=== PATIENT | female | born 1970 | race Caucasian/White ===

== ENCOUNTER 2021-09-12 16:03 | Emergency (ER) | payer BC, SELFPAY ==
--- NOTE | 2021-09-12 16:34 | HMH.EDUTC ---
[facility] [place] Clinical Impression: Bronchitis Sinusitis Qualifiers: Sinusitis location: unspecified location Chronicity: acute Recurrence: non-recurrent Qualified Code(s): J01.90 - Acute sinusitis, unspecified Disposition: Home, Self-Care Condition on Discharge: Good Instructions: DI for Sinusitis, DI for Acute Bronchitis Additional Instructions: Drink plenty of fluids. Take tylenol or ibuprofen for pain or fever. Take the medications as directed. Follow up with your regular doctor. GO TO THE ER FOR ANY WORSENING SYMPTOMS The cough medication (promethazine dm) will make you drowsy, so don't drive or operate heavy machinery after taking it. Prescriptions: Promethazine/Dextromethorphan [Promethazine-Dm Syrup] 5 ml PO Q6HP PRN #240 ml PRN Reason: Cough [facility] methylPREDNISolone [Medrol] 4 mg PO DIRECTED 6 Days #21 packet Transmission Status: Received by [facility] Azithromycin [Z-Royal 250mg Tab*] 250 mg PO UD DOSE PK #6 tab Transmission [facility]: [facility] Referrals: Pete Salas APRN [Primary Care Provider] - Forms: Work/School Release Time of Disposition: 16:48 Medical Decision Making - Medical Records Medical records reviewed: No: I reviewed the patient's medical records. - David Inquiry Pt receiving controlled substance: No Vital Signs: 09/12/21 16:40 09/12/21 16:56 Temperature 98.8 F 98.8 F Temperature Source Oral Pulse Rate 88 Pulse Rate [Left Radial] 88 Respiratory Rate 20 20 Blood Pressure 145/85 H Blood Pressure [Right Arm] 162/91 H Blood Pressure Mean [Right Arm] 114 02 Sat by Pulse Oximetry 97 - Lab Data Lab results reviewed: Yes: I reviewed the patient's lab results. Lab Results 09/12/21 16:16: Group A Strep Rapid Negative 09/12/21 16:20: Influenza Type A Ag Negative, Influenza Type B Ag Negative Orders (Tests/Meds): ORDERS Category Date Time Status Full Resp Panel w/COVID ([facility]) Routine Lab 09/12/21 16:48 Received Strep Screen Confirmation Stat Micro 09/12/21 16:16 [place] [facility] [place] - General Stated complaint: cough, runny nose, congestion Time Seen by Provider: 09/12/21 16:34 - History of Present Illness Provider Complaint: She states that she has had a cough and chest congestion for the past 3 days. She has had a low grade fever, chills, and poor appetite also. - Related Data Previous Rx's Medication Instructions Recorded Azithromycin [Z-Royal 250mg Tab*] 250 mg PO UD DOSE PK #6 tab 09/12/21 Promethazine/Dextromethorphan 5 ml PO Q6HP PRN #240 ml 09/12/21 [Promethazine-Dm Syrup] methylPREDNISolone [Medrol] 4 mg PO DIRECTED 6 Days #21 09/12/21 packet Allergies Allergy/AdvReac Type Severity Reaction Status Date / Time Penicillin Allergy Intermediate I-HIVES Uncoded 04/08/17 15:23 STRAWBERRIES (FOOD) Allergy Intermediate I-HIVES, Uncoded 04/08/17 15:23 [facility] History - Hepatitis A Screen Attestation statement:: This patient has been screened for Hepatitis A risk factors. I have reviewed the patient's past medical history: Yes ROS Obtained: Yes All systems reviewed & no additional complaints - Constitutional Constitutional: Reports as per HPI - Eyes Eyes: Denies eye discharge - ENT Ears, Nose, Mouth, and Throat: Reports as per HPI - Cardiovascular Cardiovascular: Denies chest pain - Respiratory Respiratory: Reports chest congestion, Reports cough, Denies dyspnea, Denies stridor, Denies wheezing - Integumentary/Breasts Skin/Breast: Denies rash Physical Exam - General General appearance: alert, in no apparent distress - Head Head exam: atraumatic, normocephalic, normal inspection - Eye Eye exam: Present: normal appearance, PERRL, EOMI - ENT ENT exam: Present: normal exam, normal oropharynx, mucous membranes moist, TM's normal bilaterally, normal external ear exam - Neck N
[2021-09-12 16:37] LABS: UTC Influenza A Antigen Negative (Negative); UTC Influenza B Antigen Negative (Negative)
[2021-09-12 16:40] VITALS: BP 162/91; PULSE 88; RESP 20; TEMP 37.1; O2SAT 97; BMI 36.1
[2021-09-12 16:56] VITALS: BP 145/85; PULSE 88; RESP 20; TEMP 37.1
[2021-09-12 16:56] LABS: Strep Scrn Group A (Rapid) Negative (Negative)
[2021-09-12 21:40] LABS: Coronavirus 19, PCR Not Detected (NotDetected); Influenza A, PCR Not Detected (NotDetected); Influenza B, PCR Not Detected (NotDetected)
== END 2021-09-12 16:57 | disposition home or self-care (01) ==
PROVIDERS: Emergency Provider Nurse Practitioner Family; PCP Registered Nurse
DX: J20.9 Acute bronchitis, unspecified (principal); J01.90 Acute sinusitis, unspecified; Z88.0 Allergy status to penicillin
CPT/HCPCS: 87430; 87804; 99213; C9803; G0463; U0003; U0005

== ENCOUNTER 2021-09-25 18:39 | Emergency (ER) | payer BC, SELFPAY ==
[2021-09-25 19:40] VITALS: BP 156/86; PULSE 91; RESP 19; TEMP 36.9; O2SAT 100; BMI 31.0
--- NOTE | 2021-09-25 20:11 | HMH.EDUTC ---
[facility] [place]position Clinical Impression: Bronchitis Sinusitis Qualifiers: Sinusitis location: unspecified location Chronicity: unspecified Qualified Code(s): J32.9 - Chronic sinusitis, unspecified Disposition: Home, Self-Care Condition on Discharge: Good Instructions: Sinusitis, DI for Sinusitis Additional Instructions: ? Start antibiotic today. Be sure to complete entire prescription even if feeling better ? Monitor temp. Tylenol every 4 hours as needed and / or ibuprofen every 6 hours as needed ( As long as your primary care physician has told you that it ok to take both. For fever/aches/pains ER if no less than 101 despite Tylenol or Motrin ? Humidifier/vaporizer or hot steamy shower ? Inhaler every 4-6 hours as needed like we discussed. If unsure how to use it, ask pharmacist to demonstrate how. Should help open airways and improve cough, wheezing, and shortness of breath ? Mucinex during the day for your cough and cough suppressant only at night. Be sure to drink lots of water. Insurance may not cover a prescriptions for mucinex. Might be cheaper to get 400mg tablets and take 2 tablet in the morning, mid-day and evening with lots of water. *Start steroid today. Helps with inflammation therefore, cough and wheezing. Follow directions on the package. Reviewed side effects. Patient reports taking them before. Follow up IMMEDIATELY for new or worsening of symptoms OR no noticeable improvement over the next 48-72 hours. 911 immediately for any life threatening symptoms such as chest pain or difficulty breathing Prescriptions: Albuterol Sulfate [Proventil-HFA 90mcg/puff Inh] 1 - 2 puffs IH Q6HP PRN #1 each PRN Reason: Shortness Of Breath [facility] guaiFENesin [Mucinex 600mg tablet] 1 - 2 tab PO Q12HP PRN #20 tab PRN Reason: Congestion Transmission Status[facility] Doxycycline Monohydrate [Doxycycline Foster 100mg Tab] 100 mg PO BID 10 Days #20 tab Transmission [facility]: [facility] predniSONE [Prednisone 20mg Tab] 20 mg PO BID 3 Days #6 tab Transmission Status[facility] Referrals: Provider,Referral, [Primary Care Provider] - As needed Time of Disposition: 20:24 Medical Decision Making - David Inquiry Pt receiving controlled substance: No David was queried for this patient: No Vital Signs: 09/25/21 19:40 Temperature 98.5 F Temperature Source Oral Pulse Rate [Right Brachial] 91 H Respiratory Rate 19 Blood Pressure [Right Arm] 156/86 H Blood Pressure Mean [Right Arm] 109 Blood Pressure Source [Right Arm] Automatic Cuff Blood Pressure Position [Right Arm] Sitting 02 Sat by Pulse Oximetry 100 Oxygen Delivery Method Room Air [facility] [place] HPI - General Stated complaint: cough,SOB,Congestion Time Seen by Provider: 09/25/21 20:11 Mode of Arrival: Ambulatory Source of Information: Patient Limitations: No Limitations Description of Symptoms (Recalled from Triage Doc. by RN): PATIENT C/O COUGH, CONGESTION, SOA X 2 WEEKS. WAS RECENTLY TREATED FOR SINUS INFECTION BUT STATES SHE HAS GOTTEN WORSE HEENT Symptoms (Recalled from RN notes): Yes Resp Symptoms (Recalled from RN notes): Yes Skin Symptoms (Recalled from RN notes): No MS Symptoms (Recalled from RN notes): No Functional Status (Recalled from RN notes): WNL - History of Present Illness Provider Complaint: Patient states that she was recently seen and treated for sinus infection State that she took a zpack but it didnt help much States that she thinks she needs something stronger to help clear it up States that she is still having sinus pain and pressure and cough - Related Data Home Medications Medication Instructions Recorded Confirmed lisinopriL [Lisinopril] 40 mg PO DAILY 09/25/21 09/25/21 Previous Rx's Medication Instructions Recorded Albuterol Sulfate [Proventil-HFA 1 - 2 puffs IH Q6HP PRN #1 each 09/25/21 90mcg/puff Inh
[2021-09-25 20:25] VITALS: BP 156/86; PULSE 91; RESP 19; TEMP 36.9; O2SAT 100
== END 2021-09-25 20:30 | disposition home or self-care (01) ==
PROVIDERS: Emergency Provider Nurse Practitioner
DX: J40 Bronchitis, not specified as acute or chronic (principal); J32.9 Chronic sinusitis, unspecified; Z88.0 Allergy status to penicillin
CPT/HCPCS: 99212; G0463

== ENCOUNTER → 2022-05-22 15:11 | Outpatient (CLI) | payer BC, SELFPAY | PROVIDERS: PCP Family Medicine; Visit Provider Family Medicine | DX: G47.30 Sleep apnea, unspecified (principal); R53.83 Other fatigue; R06.83 Snoring; I10 Essential (primary) hypertension; E66.9 Obesity, unspecified | CPT/HCPCS: G0399 ==

== ENCOUNTER → 2022-11-22 10:54 | Outpatient (CLI) | payer BC, SELFPAY ==
--- NOTE | 2022-11-22 10:59 | MM_ITS ---
PROCEDURE INFORMATION: Exam: Bilateral Screening 3D Mammography Exam date and time: 11/22/2022 11:04 AM Age: 52 years old Clinical indication: Screening mammogram. Family history of breast cancer in sister and in grandmother; Sister's age: 57 years TECHNIQUE: Imaging protocol: Bilateral Screening tomosynthesis and 2D mammography including computer-aided detection (CAD) when performed. COMPARISON: No relevant prior studies available. FINDINGS: MAMMOGRAPHY: Breast composition: The breast is heterogeneously dense, which may obscure small masses. Mass: None. Architectural distortion: No new or suspicious architectural distortion. Calcifications: Calcifications within the upper outer right middle 1/3 should be assessed with spot MAGNIFICATION views in CC/ML projection for morphologic characterization. . Asymmetric density: 1.1 cm asymmetric density within the upper outer posterior right breast should be further assessed with spot views in CC/MLO projection. Ultrasound should also be performed. Skin thickening: None. Axillary adenopathy: None. IMPRESSION: 1.1 cm asymmetric density within the upper outer posterior right breast should be further assessed with spot views in CC/MLO projection. Ultrasound should also be performed. Calcifications within the upper outer right middle 1/3 should be assessed with spot MAGNIFICATION views in CC/ML projection for morphologic characterization ASSESSMENT: BI-RADS category 0: Incomplete-need additional imaging evaluation and/or prior mammograms for comparison.
== END ==
PROVIDERS: PCP Family Medicine; Visit Provider Family Medicine
DX: Z12.31 Encounter for screening mammogram for malignant neoplasm of breast (principal)
CPT/HCPCS: 77063; 77067

== ENCOUNTER → 2022-12-06 10:38 | Outpatient (CLI) | payer BC, SELFPAY ==
--- NOTE | 2022-12-06 10:44 | XR_ITS ---
FINAL REPORT CLINICAL HISTORY: medial sided Lt knee pain. FINDINGS: Left knee Four views were obtained. There is no acute fracture or dislocation. There are mild degenerative changes. No soft tissue abnormality is identified. IMPRESSION: No acute process. Reviewed, Interpreted and Dictated by Dean Pack III, MD Transcribed by Nathalia Murillo Authenticated and [facility]
--- NOTE | 2022-12-06 14:30 | MM_ITS ---
PROCEDURE INFORMATION: Exam: US Right Breast, Complete MG Right Diagnostic Breast Tomosynthesis Exam date and time: 12/06/2022 2:24 PM Age: 52 years old Clinical indication: Patient recalled on the basis of a screening mammogram for further evaluation; Right breast; calcifications and asymmetry TECHNIQUE: Imaging protocol: Complete ultrasound of all four quadrants of the right breast and the retroareolar regions, including ultrasound of the axilla when performed. Right Diagnostic tomosynthesis and 2D mammography including computer-aided detection (CAD) when performed. Unilateral or bilateral exam. COMPARISON: MG MM DIG SCREENING MAMM BI W/CAD 11/22/2022 11:04 AM FINDINGS: MAMMOGRAPHY: Digital diagnostic magnification views of the middle third of the right upper outer quadrant demonstrate predominantly layering calcifications most compatible with benign milk of calcium. There are few remaining ovoid calcifications however these have a benign radiographic appearance. Digital diagnostic spot compression views of the posterior right upper outer breast demonstrates persistent asymmetry admixed with benign fatty tissue elements. This suggests a benign island of fibroglandular structures. ULTRASOUND: Sonographic images of the right breast including the retroareolar region, all 4 quadrants and the axilla do not demonstrate any solid or cystic masses. No architectural distortion or acoustical shadowing. No skin thickening or axillary adenopathy. IMPRESSION: 1. Calcifications in the right upper outer quadrant are, in all likelihood, benign in etiology. A precautionary six-month follow-up diagnostic right mammogram magnification views are recommended to ensure stability over time. 2. No suspicious persistent asymmetry in the right breast. ASSESSMENT: BI-RADS Category 3: Probably benign
== END ==
PROVIDERS: PCP Family Medicine; Visit Provider Family Medicine
DX: M25.562 Pain in left knee (principal); R92.8 Other abnormal and inconclusive findings on diagnostic imaging of breast
CPT/HCPCS: 73562; 76641; 77061; 77065; G0279

== ENCOUNTER 2023-02-14 06:46 | Day surgery (SDC) | payer BC, SELFPAY ==
[2023-02-14 06:54] VITALS: BMI 30.9
[2023-02-14 07:08] VITALS: BP 167/83; PULSE 76; RESP 18; TEMP 36.3; O2SAT 100
[2023-02-14 07:39] LABS: Urine Pregnancy, HCG Qual. Negative (Negative)
[2023-02-14 07:41] VITALS: O2SAT 100
--- NOTE | 2023-02-14 07:42 | P.PNANES_ITS ---
[facility] Disclaimer: The information contained in this section may have been updated after the patient was seen, as this information can be updated by other users. Medical History Bipolar 1 disorder Hypertension Osteoarthritis Surgical History History of appendectomy History of bilateral breast reduction surgery History of delivery History of cholecystectomy History of left knee surgery History of right shoulder replacement History of tubal ligation Family History Other Cancer Coronary artery disease Diabetes Heart attack Hypertension Kidney disease Social History Smoking Status: Never smoker alcohol intake: never substance use type: denies use current occupational status: employed Travel in the last 8 weeks: None housing: house marital status: [facility] Anesthesia Checklist Patient Identification Patient Identification: Arm Band Structural Data Admitted From: Home Planned Operative Procedure/s: colonoscopy Consent for Planned Operative Procedure(s) Verified: Yes Verified Documents: Surgical Consent and History and Physical NPO Status Verified Time NPO: 00:00 Additional verifications Anesthesia Reactions: No Airway Assessment Mallampati Score:: Class II C-Spine Mobility Assessed: Yes TMJ Mobility Assessed: Yes Dentition: Good Dentition Neurological Assessment Level of Consciousness: Awake and Alert Anesthesia Plan Anesthesia Risk discussed: Yes Anesthesia Plan: Verified ASA Class: II Anesthesia Type: MAC
[2023-02-14 08:15] VITALS: BP 129/74; PULSE 75; RESP 17; TEMP 36.2; O2SAT 98
--- NOTE | 2023-02-14 08:15 | HMH.SCOPE ---
Procedure: Date: 02/14/23 Patient Date of :: 1970 Procedure Performed:: Total colonoscopy to ileocecal valve Indications:: Patient is a 53-year-old female referred by Dr. Rodriguez for screening colonoscopy. She has had previous colonoscopy on more than one occasion and had previous polyps reportedly. Last colonoscopy was about 11 years ago. Performing Provider:: Dean Zhao MD Referring Provider:: Alonso Rodriguez Sedation:: MAC sedation Procedure:: Patient history was obtained and appropriate physical examination was performed. Patient's medications and allergies were reviewed. Informed consent was obtained after explaining the benefits, alternatives, and risks of the procedure including, but not limited to, bleeding, perforation, missed lesions, and adverse reaction to anesthesia medications. Patient was transported to endoscopy procedure room. Patient was connected to monitoring devices. Throughout the procedure the patient's blood pressure, pulse, and oxygen saturations were monitored continuously. Patient identification and planned procedure were verified by the staff. Patient was positioned in lateral decubitus position. Digital anorectal exam was performed. Variable stiffness Olympus colonoscope was inserted and advanced under direct visualization to the cecum. Adequacy of the colonic preparation was noted. The colonoscope was advanced a short distance into the ileocecal valve. The colonoscope was then slowly withdrawn while carefully examining the color, texture, anatomy, and integrity of the mucosoa circumferentially. Within the rectum retroflexion was performed. Colonoscope was then withdrawn. Findings:: A few sigmoid diverticuli Specimens:: None Recommendations:: Repeat colonoscopy 5 to 7 years given prior history of polyps reportedly Complications:: None immediately apparent Estimated blood obtained (mL): 1 Colonoscopy Component Colonoscopy Component Was a colonoscopy performed during today's procedure?: Yes Recommended follow up colonoscopy of at least 10 years?: No If no, follow up colonoscopy recommended in ___ years?: 7 Reason for not recommending >/= 10 yr follow-up interval?: Previous polyps
[2023-02-14 08:25] VITALS: BP 125/75; PULSE 69; RESP 16; O2SAT 98
[2023-02-14 08:35] VITALS: BP 135/76; PULSE 77; RESP 17; O2SAT 97
[2023-02-14 08:45] VITALS: BP 152/92; PULSE 76; RESP 17; O2SAT 97
== END 2023-02-14 08:55 | disposition home or self-care (01) ==
PROVIDERS: PCP Family Medicine; Visit Provider Surgery
PROC: 0DJD8ZZ Inspection of Lower Intestinal Tract, Via Natural or Artificial Opening Endoscopic (ICD-10-PCS; CPT 45378; principal; 2023-02-14 07:30)
DX: Z12.11 Encounter for screening for malignant neoplasm of colon (principal); Z86.010 Personal history of colon polyps; K57.30 Diverticulosis of large intestine without perforation or abscess without bleeding
CPT/HCPCS: 45378; 81025

== ENCOUNTER 2023-04-23 12:34 | Emergency (ER) | payer BC, SELFPAY ==
[2023-04-23 13:00] VITALS: BP 150/96; PULSE 78; RESP 18; TEMP 37; O2SAT 96; BMI 31.8
[2023-04-23 13:24] LABS: Apearance,Urine Clear (Clear); Color,Urine Amber (Yellow); Glucose,Urine (UA) Negative (Negative); Ketones,Urine Negative (Negative); Protein,Urine 1+ (Negative); Specific Gravity, Urine 1.025 (1.005-1.030)
[2023-04-23 13:25] LABS: Bilirubin,Urine Negative (Negative); Blood, Urine Negative (Negative); UTC Leukocyte Esterase,Urine Negative (Negative); UTC Nitrate,Urine Negative (Negative); Urobilinogen,Urine 0.2 EU/dl (0.2)
--- NOTE | 2023-04-23 14:00 | ED_ITS ---
Discharge Plan Disposition Patient Disposition: Home, Self-Care Condition: Good Prescriptions Prescriptions: New cephalexin [cephalexin] 500 mg tablet 500 mg PO BID 7 Days Qty: 14 0RF No Action amlodipine 10 mg tablet 10 mg PO DAILY ergocalciferol (vitamin D2) 1,250 mcg (50,000 unit) capsule 50,000 unit PO WEEKLY Wegovy 2.4 mg/0.75 mL pen injector 2.4 mg SQ WEEKLY lisinopril 40 MG tablet 40 mg PO DAILY nitrofurantoin monohyd/m-cryst 100 mg capsule See Rx Instructions .ROUTE .COMPLEX Patient Comments: TAKE 1 CAPSULE BY MOUTH TWICE DAILY Rx Instructions: TAKE 1 CAPSULE BY MOUTH TWICE DAILY Referrals Follow up/Referrals: Alonso Rodriguez MD [Primary Care Provider] - See instructions Activity Restrictions/Add. Instructions Additional Instructions/Restrictions: Increase fluids, water and not soda or tea. Can drink cranberry juice or cranberry extract. Wipe front to back Wear cotton underwear Empty bladder after intercourse Start antibiotics immediately and make sure you take the full course although you may start to see improvement over the next 48 hours. You can eat yogurt or take probiotics to decrease diarrhea or yeast infection caused by the antibiotic Be sure to follow-up anytime for new or worsening symptoms in 48 hours for wound urine culture results be sure to let you PCP no recent urine for culture so they can request records and ensure that you have appropriate antibiotic if you are not getting better or getting worse. If symptoms worsen or do not improve return or be seen in the ER. Follow-up with primary care this week. Clinical Impressions Clinical Impression: UTI (urinary tract infection) Qualifiers: Urinary tract infection type: acute cystitis Hematuria presence: without hematuria Qualified Code(s): N30.00 - Acute cystitis without hematuria Instructions Patient Instructions: Urinary Tract Infection Discharge ED Provider: Alex ([facility])[place] [facility] [place] HPI General Stated complaint: pain in urination & lower back Mode of Arrival: Ambulatory Source of Information: Patient Limitations: No Limitations Time Seen by Provider: 04/23/23 14:00 Description of Symptoms (Recalled from Triage Doc. by RN): Pt is currently on macrobid for a UTI. She stated that the symptoms has returned yesterday with lower back pain, nausea, and burning with urination. HEENT Symptoms (Recalled from RN notes): Yes Resp Symptoms (Recalled from RN notes): No Skin Symptoms (Recalled from RN notes): No MS Symptoms (Recalled from RN notes): No Functional Status (Recalled from RN notes): n/a History of Present Illness Provider Complaint: 53 yr old female presents for burning with urination, low back pain and bladder pain. Pt is currently on macrobid for a UTI. She stated that the symptoms has returned yesterday with lower back pain, nausea, and burning with urination. Related Data Home Medications Medication Instructions Recorded Confirmed lisinopril 40 mg tablet 40 mg PO DAILY Hypertension 09/25/21 04/23/23 amlodipine 10 mg tablet 10 mg PO DAILY 06/20/22 04/23/23 ergocalciferol (vitamin D2) 1,250 50,000 unit PO WEEKLY 06/20/22 04/23/23 mcg (50,000 unit) capsule semaglutide (weight loss) 2.4 2.4 mg SQ WEEKLY 12/06/22 04/23/23 mg/0.75 mL subcutaneous pen injector (Wegovy) nitrofurantoin See Rx Instructions .Route .COMPLEX 04/23/23 04/23/23 monohydrate/macrocrystals 100 mg capsule Previous Rx's Medication Instructions Recorded cephalexin 500 mg tablet 500 mg PO BID 7 days #14 tabs 04/23/23 Allergies Allergy/AdvReac Type Severity Reaction Status Date / Time Penicillins Allergy Verified 04/23/23 13:22 strawberry Allergy Verified 04/23/23 13:22 Worker's Comp Is this a Worker's Comp case?: No [facility] Disclaimer: The information contained in this section may have been updated after the patient was seen, as this information can be updated by other users. Medical History , [employer]) Bipolar 1 disorder Hypertension Osteoarthritis Surgical History , [employer]) History of appendectomy History of bilateral breast reduction surgery History of delivery History of cholecystectomy History of left knee surgery History of right shoulder replacement History of tubal ligation Family History , [employer]) Diabetes Coronary artery disease Kidney disease Heart attack Cancer Hypertension Social History , [employer]) Smoking Status: Never smoker alcohol intake: never substance use type: denies use current occupational status: employed Travel in the last 8 weeks: None housing: house marital status: ROS Obtained: Yes All systems reviewed & no additional complaints except as documented Constitutional Constitutional: Reports system reviewed and no additional complaints, except as documented Eyes Eyes: Reports system reviewed and no additional complaints, except as documented ENT Ears, Nose, Mouth, and Throat: Reports system reviewed and no additional complaints, except as documented Cardiovascular Cardiovascular: Reports system reviewed and no additional complaints, except as documented Respiratory Respiratory: Reports system reviewed and no additional complaints, except as documented Gastrointestinal Gastrointestingal: Reports system reviewed and no additional complaints, except as documented Genitourinary Female Genitourinary: Reports system reviewed and no additional complaints, except as documented, Reports as per HPI, Reports pelvic pain, Reports urinary frequency and Reports urinary urgency Musculoskeletal Musculoskeletal: Reports system reviewed and no additional complaints, except as documented Integumentary/Breasts Skin/Breast: Reports system reviewed and no additional complaints, except as documented Neurologic Neurologic: Reports system reviewed and no additional complaints, except as documented Endocrine Endocrine: Reports system reviewed and no additional complaints, except as documented Hematologic/Lymphatic Henatologic/Lymphatic: Reports system reviewed and no additional complaints, except as documented Allergic/Immunologic Allergic/Immunologic: Reports system reviewed and no additional complaints, except as documented Physical Exam General General appearance: alert and in no apparent distress Head Head exam: atraumatic Eye Eye exam: Present normal appearance and PERRL ENT ENT exam: Present normal exam, normal oropharynx, mucous membranes moist and TM's normal bilaterally Respiratory Respiratory exam: Present normal lung sounds bilaterally Cardiovascular Cardiovascular exam: Present regular rate and normal rhythm Back Exam Back exam: Present CVA tenderness (R) Neurological Exam Neurological exam: Present alert and oriented X3 Medical Decision Making Medical Records Medical records reviewed: Yes I reviewed the patient's medical records. David Inquiry Pt receiving controlled substance: No David was queried for this patient: No Vital Signs: 04/23/23 13:00 Temperature 98.6 F Temperature Source Oral Pulse Rate [Right Radial] 78 Respiratory Rate 18 Blood Pressure [Right Arm] 150/96 H Blood Pressure Mean [Right Arm] 114 Blood Pressure Source [Right Arm] Automatic Cuff Blood Pressure Position [Right Arm] Sitting 02 Sat by Pulse Oximetry 96 Oxygen Delivery Method Room Air Lab Data Lab results reviewed: Yes I reviewed the patient's lab results. Lab Results 04/23/23 13:09: Urine Color Eduarda, Urine Appearance Clear, Urine pH 6.0, Ur Specific [place] 1.025, Urine Protein 1+, Urine Glucose (UA) Negative, Urine Ketones Negative, Urine Blood Negative, Urine Nitrate Negative, Urine Bilirubin Negative, Urine Urobilinogen 0.2, Ur Leukocyte Esterase Negative Orders (Tests/Meds): ORDERS Category Date Time Status Urine Culture Stat Micro 04/23/23 13:05 Received
[2023-04-23 14:19] VITALS: BP 150/96; PULSE 78; RESP 18; TEMP 37; O2SAT 96
== END 2023-04-23 14:19 | disposition home or self-care (01) ==
PROVIDERS: Emergency Provider Nurse Practitioner Family; PCP Family Medicine
DX: N30.00 Acute cystitis without hematuria (principal); B96.89 Other specified bacterial agents as the cause of diseases classified elsewhere; M54.59 Other low back pain; R10.2 Pelvic and perineal pain; R11.0 Nausea; I10 Essential (primary) hypertension
CPT/HCPCS: 81003; 87086; 99212; 99214; G0463

== ENCOUNTER 2023-08-06 13:22 | Outpatient (CLI) | payer BC, SELFPAY ==
--- NOTE | 2023-08-06 13:29 | MM_ITS ---
PROCEDURE INFORMATION: Exam: MG Right Diagnostic Breast Tomosynthesis Exam date and time: 08/06/2023 1:39 PM Age: 53 years old Clinical indication: Short-term radiographic followup; right breast calcifications TECHNIQUE: Imaging protocol: Right Diagnostic tomosynthesis and 2D mammography including computer-aided detection (CAD) when performed. Unilateral or bilateral exam. COMPARISON: 1. MG MM DIG MAMM DX UNILAT RT CAD 12/06/2022 2:24 PM 2. MG MM DIG SCREENING MAMM BI W/CAD 11/22/2022 11:04 AM FINDINGS: MAMMOGRAPHY: Breast composition: There are scattered areas of fibroglandular density. Breast mammogram findings: There is no stellate mass or architectural distortion to suggest malignancy. Magnification views of the right upper outer quadrant demonstrate stable fairly widespread geographically distributed predominantly round calcifications. No tight clustering or significant pleomorphism. No skin thickening or axillary adenopathy. IMPRESSION: Stable probably benign calcifications in the right upper outer quadrant compared to prior mammogram dated 12/06/2022. A six-month follow-up diagnostic bilateral mammogram with magnification views of the right breast are recommended for continued close surveillance of the right sided calcifications as well as part of an annual screening schedule ASSESSMENT: BI-RADS Category 3: Probably benign.
== END 2023-08-06 23:59 | disposition home or self-care (01) ==
LOC: RAD 13:23
PROVIDERS: PCP Family Medicine; Visit Provider Family Medicine
DX: R92.8 Other abnormal and inconclusive findings on diagnostic imaging of breast (principal)
CPT/HCPCS: 77061; 77065; G0279

== ENCOUNTER 2024-05-19 13:22 | Emergency (ER) | payer BC, SELFPAY ==
[2024-05-19 13:40] VITALS: BP 156/92; PULSE 97; RESP 18; TEMP 36.8; O2SAT 96; BMI 33.3
[2024-05-19 13:43] LABS: Apearance,Urine Cloudy (Clear); Color,Urine Yellow (Yellow); PH,Urine 5.5 (5.0-8.5); Protein,Urine 1+ (Negative)
[2024-05-19 13:44] LABS: Bilirubin,Urine Negative (Negative); Blood, Urine Trace (Negative); Glucose,Urine (UA) Negative (Negative); Ketones,Urine Negative (Negative); UTC Leukocyte Esterase,Urine 2+ (Negative); UTC Nitrate,Urine Positive (Negative); Urobilinogen,Urine 0.2 EU/dl (0.2)
--- NOTE | 2024-05-19 13:52 | ED_ITS ---
Discharge Plan Disposition Patient Disposition: Home, Self-Care Condition: Good Prescriptions Prescriptions: New phenazopyridine [Pyridium] 200 mg tablet 200 mg PO Q8H 2 Days Qty: 6 0RF ondansetron 4 mg Tablet,Disintegrating 4 mg PO Q8H PRN (Reason: Nausea) Qty: 12 0RF nitrofurantoin monohyd/m-cryst [Macrobid] 100 mg Capsule 100 mg PO BID Qty: 10 0RF Rx Instructions: must administer with a meal/food No Action amlodipine 10 mg tablet 10 mg PO DAILY ergocalciferol (vitamin D2) 1,250 mcg (50,000 unit) capsule 50,000 unit PO WEEKLY Wegovy 2.4 mg/0.75 mL pen injector 2.4 mg SQ WEEKLY lisinopril 40 MG tablet 40 mg PO DAILY nitrofurantoin monohyd/m-cryst 100 mg capsule See Rx Instructions .ROUTE .COMPLEX Patient Comments: TAKE 1 CAPSULE BY MOUTH TWICE DAILY Rx Instructions: TAKE 1 CAPSULE BY MOUTH TWICE DAILY Referrals Follow up/Referrals: Alonso Rodriguez MD [Primary Care Provider] - See instructions Activity Restrictions/Add. Instructions Additional Instructions/Restrictions: Drink plenty of fluids. Take tylenol or ibuprofen for pain or fever. Take the medications as directed. Follow up with your regular doctor. GO TO THE ER FOR ANY WORSENING SYMPTOMS The pyridium will make your urine turn orange, this is an expected side effect. It will stain your clothes if it comes into contact with them. We will culture the urine. That will tell what bacteria is causing your infection and which antibiotics will treat it best.This test takes 3 days to complete. Clinical Impressions Clinical Impression: UTI (urinary tract infection) Qualifiers: Urinary tract infection type: acute cystitis Hematuria presence: without hematuria Qualified Code(s): N30.00 - Acute cystitis without hematuria Instructions Patient Instructions: Urinary Tract Infection, Urine Culture, DI for Urinary Tract Infection (UTI), Ondansetron, Phenazopyridine Print Language Print Language: Upper Sorbian Discharge ED Provider: Alan Starr [facility] [place] General Stated complaint: possible UTI Mode of Arrival: Ambulatory Source of Information: Patient Time Seen by Provider: 05/19/24 13:51 Description of Symptoms (Recalled from Triage Doc. by RN): UTI S/S, BURNING/PAINFUL URINATION HEENT Symptoms (Recalled from RN notes): No Resp Symptoms (Recalled from RN notes): No Skin Symptoms (Recalled from RN notes): No MS Symptoms (Recalled from RN notes): No Functional Status (Recalled from RN notes): WNL Related Data Home Medications ?Medication ?Instructions ?Recorded ?Confirmed lisinopril 40 mg tablet 40 mg PO DAILY Hypertension 09/25/21 05/19/24 amlodipine 10 mg tablet 10 mg PO DAILY 06/20/22 05/19/24 ergocalciferol (vitamin D2) 1,250 50,000 unit PO WEEKLY 06/20/22 04/23/23 mcg (50,000 unit) capsule semaglutide (weight loss) 2.4 2.4 mg SQ WEEKLY 12/06/22 04/23/23 mg/0.75 mL subcutaneous pen injector (Wegovy) nitrofurantoin See Rx Instructions .Route .COMPLEX 04/23/23 04/23/23 monohydrate/macrocrystals 100 mg capsule Previous Rx's ?Medication ?Instructions ?Recorded nitrofurantoin 100 mg PO BID #10 caps 05/19/24 monohydrate/macrocrystals 100 mg capsule (Macrobid) ondansetron 4 mg disintegrating 4 mg PO Q8H PRN Nausea #12 tabs 05/19/24 tablet phenazopyridine 200 mg tablet 200 mg PO Q8H 2 days #6 tabs 05/19/24 (Pyridium) Allergies Allergy/AdvReac Type Severity Reaction Status Date / Time Penicillins Allergy Verified 04/23/23 13:22 strawberry Allergy Verified 04/23/23 13:22 Worker's Comp Is this a Worker's Comp case?: No [facility] Disclaimer: The information contained in this section may have been updated after the patient was seen, as this information can be updated by other users. Medical History , [employer]) Bipolar 1 disorder Hypertension Osteoarthritis Surgical History , [employer]) History of appendectomy History of bilateral breast reduction surgery History of delivery History of cholecystectomy History of left knee surgery History of right shoulder replacement History of tubal ligation Family History , HOL[employer] PULSER) Diabetes Coronary artery disease Kidney disease Heart attack Cancer Hypertension Social History , [employer]OL[employer] PUL[employer]ER) Smoking Status: Never smoker alcohol intake: never substance use type: denies use current occupational status: employed Travel in the last 8 weeks: None housing: house marital status: Have you lived/traveled outside US in past 30 days?: No Contact w/someone who lives/traveled outside US past 30 days?: No Exposure to someone with infectious disease in past 14 days?: No Do you have a fever (greater than 100.4 F or 38 C)?: No Have you tested positive for COVID-19: No Exposed to someone with COVID-19 in past 14 days?: No Do you have a sore throat?: No Do you have a cough?: No Do you have any weakness?: No Do you have any diarrhea?: No Are you experiencing any unusual bleeding?: No Do you have any muscle aches/pain?: No Do you have any abdominal pain?: No Are you experiencing loss of taste or smell?: No ROS Obtained: Yes All systems reviewed & no additional complaints except as documented Constitutional Constitutional: Reports system reviewed and no additional complaints, except as documented, Denies chills and Denies fever(s) Eyes Eyes: Denies eye discharge ENT Ears, Nose, Mouth, and Throat: Denies dysphagia, Denies sore throat and Denies throat swelling Cardiovascular Cardiovascular: Denies chest pain and Denies dyspnea Respiratory Respiratory: Denies chest congestion, Denies cough and Denies dyspnea Gastrointestinal Gastrointestingal: Denies abdominal pain, constipation, diarrhea, dysphagia, nausea or vomiting Genitourinary Female Genitourinary: Reports as per HPI, Reports dysuria, Reports urinary frequency, Denies urinary incontinence, Reports urinary hesitancy and Reports urinary urgency Musculoskeletal Musculoskeletal: Denies arthralgias and Reports back pain Integumentary/Breasts Skin/Breast: Denies rash Neurologic Neurologic: Denies paresthesias Allergic/Immunologic Allergic/Immunologic: Denies throat swelling Physical Exam General General appearance: alert and in no apparent distress Head Head exam: atraumatic and normocephalic Eye Eye exam: Present normal appearance, PERRL and EOMI ENT ENT exam: Present normal exam, mucous membranes moist, TM's normal bilaterally and normal external ear exam Neck Neck exam: Present normal inspection, full ROM and trachea midline; Absent tenderness, meningismus or lymphadenopathy Chest Chest inspection: Present normal inspection and symmetric chest wall rise; Absent tenderness Respiratory Respiratory exam: Present normal lung sounds bilaterally; Absent respiratory distress, wheezes or stridor Cardiovascular Cardiovascular exam: Present regular rate, normal rhythm and normal heart sounds Abdominal Exam Abdominal exam: Present soft and normal bowel sounds; Absent distention, tenderness, guarding, rebound, rigidity, incision, psoas sign, obturator sign, heel tap sign, Dumas's sign, Rovsing's sign or tenderness at McBurney's Point Extremities Exam Extremities exam: Present normal inspection, full ROM and normal capillary refill; Absent tenderness, edema, joint swelling, calf tenderness or cyanosis Back Exam Back exam: Present normal inspection and full ROM; Absent tenderness, CVA tenderness (R) or CVA tenderness (L) Neurological Exam Neurological exam: Present alert, oriented X3 and normal gait Psychiatric Psychiatric exam: Present normal affect and normal mood Skin Skin exam: Present warm, dry, intact and normal color Lymphatic Lymphatic Findings: no adenopathy Medical Decision Making Medical Records Medical records reviewed: No I reviewed the patient's medical records. Screening: Per USPSTF and CDC recommendations, given the prevalence of disease in our region, it is our hospital?s policy to screen for HIV and viral Hepatitis for all patients aged 18 and over and those with ongoing risk factors. David Inquiry Pt receiving controlled substance: No Vital Signs: 05/19/24 13:40 Temperature 98.2 F Temperature Source Oral Pulse Rate [Left Radial] 97 H Respiratory Rate 18 Blood Pressure [Left Arm] 156/92 H Blood Pressure Mean [Left Arm] 113 02 Sat by Pulse Oximetry 96 Lab Data Lab results reviewed: Yes I reviewed the patient's lab results. Lab Results 05/19/24 13:42: Urine Color Yellow, Urine Appearance Cloudy, Urine pH 5.5, Ur Specific Pierron 1.030, Urine Protein 1+, Urine Glucose (UA) Negative, Urine Ketones Negative, Urine Blood Trace, Urine Nitrate Positive A, Urine Bilirubin Negative, Urine Urobilinogen 0.2, Ur Leukocyte Esterase 2+ A Orders (Tests/Meds): ORDERS Category Date Time Status Urine Culture Stat Micro 05/19/24 13:42 Ordered
[2024-05-19 14:47] VITALS: BP 156/92; PULSE 97; RESP 18; TEMP 36.8
--- NOTE | 2024-05-22 15:11 | PC.NURSE ---
URINE CULTURE REVIEWED BY Maryan ARIAS APRN. PATIENT CURRENTLY ON MACROBID, WHICH DOES NOT COVER ORGANISM. PATIENT SENT IN DOXYCYCLINE BY Maryan ARIAS APRN. SPOKE WITH PATIENT AT THIS TIME. ADVISED PATIENT TO STOP MACROBID AND START DOXYCYCLINE AND TO FOLLOW UP WITH PCP IF NEEDED. PATIENT VERBALIZED UNDERSTANDING
== END 2024-05-19 14:48 | disposition home or self-care (01) ==
PROVIDERS: Emergency Provider Nurse Practitioner Family; PCP Family Medicine
DX: N30.00 Acute cystitis without hematuria (principal)
CPT/HCPCS: 81003; 87086; 87088; 87186; 99213; G0381

== ENCOUNTER 2024-06-12 12:13 | Outpatient (CLI) | payer BC, SELFPAY | END 2024-06-12 23:59 | disposition home or self-care (01) | LOC: LAB.DROPOF 06-15 16:08 | PROVIDERS: PCP Nurse Practitioner Family; Visit Provider Nurse Practitioner Family | DX: N39.0 Urinary tract infection, site not specified (principal) | CPT/HCPCS: 87086; 87088; 87186 ==

== ENCOUNTER 2024-08-07 09:34 | Outpatient (CLI) | payer BC, SELFPAY | END 2024-08-07 23:59 | disposition home or self-care (01) | LOC: LAB.DROPOF 08-09 09:35 | PROVIDERS: PCP Family Medicine; Visit Provider Student in an Organized Health Care Education/Training Program | DX: R30.0 Dysuria (principal); B96.20 Unspecified Escherichia coli [E. coli] as the cause of diseases classified elsewhere | CPT/HCPCS: 87086; 87088; 87186 ==

== ENCOUNTER 2024-08-20 11:37 | Outpatient (CLI) | payer BC, SELFPAY | END 2024-08-20 23:59 | LOC: LAB.DROPOF 08-23 11:38 | PROVIDERS: PCP Family Medicine; Visit Provider Student in an Organized Health Care Education/Training Program | DX: R30.0 Dysuria (principal); N39.0 Urinary tract infection, site not specified; B96.20 Unspecified Escherichia coli [E. coli] as the cause of diseases classified elsewhere | CPT/HCPCS: 87086; 87088; 87186 ==

== ENCOUNTER 2024-10-26 16:25 | Outpatient (CLI) | payer BC, SELFPAY ==
--- OUTSIDE RECORDS SUMMARY | 2024-10-26 16:28 | XMS_ITS | Encounter Summary ---
Author Organization [employer] ([place], [place], [place], [place]) Address [address] [place] [address] Care Team Providers Care Kitchen Worker Name Role Phone Unavailable Primary Care Provider Unavailabl e Encounter Details Date Type Department Care Team (Late st Contact Info) Description 11/28/2018 Transcribed Document [facility] [place] [address] [place] [address] ProviderSebastian MD [address] [place] [address] Social History Tobacco Use Types Packs/Day Years Used Date Smoking Tobacco: Never Assessed Comments Unknown Sex and Gender Information Value Date Recorded Sex Assigned at Female 10/16/2021 4:08 PM CDT Legal Sex Female 4:08 PM CDT Gender Identity Female 10/16/2021 4:08 PM CDT Sexual Orientation Not on file documented as of this encounter Miscellaneous Notes * Cerner Conversion Note - Sebastian Hunter MD - 11/28/2018 1:49 PM CDT Patient Education Materials Follows: Laparoscopic Appendectomy, Adult, Care After These instructions give you information about caring for yourself after your procedure. Your doctor may also give you more specific instructions. Call your doctor if you have any problems or questions after your procedure. Follow these instructions at home: Medicines ??? Take [id number] and prescription medicines only as told by your doctor. ??? Do not drive for 24 hours if you received a sedative. ??? Do not drive or use heavy machinery while taking prescription pain medicine. ??? If you were prescribed an antibiotic medicine, take it as told by your doctor. Do not stop taking it even if you start to feel better. Activity ??? Do not lift anything that is heavier than 10 pounds (4.5 kg) for 3 weeks or as told by your doctor. ??? Do not play contact sports for 3 weeks or as told by your doctor. ??? Slowly return to your normal activities. Bathing ??? Keep your cuts from surgery (incisions) clean and dry. ? Gently wash the cuts with soap and water. ? Rinse the cuts with water until the soap is gone. ? Pat the cuts dry with a clean towel. Do not rub the cuts. ??? You may take showers after 48 hours. ??? Do not take baths, swim, or use a hot tub for 2 weeks or as told by your doctor. Cut Care ??? Follow instructions from your doctor about how to take care of your cuts. Make sure you: ? Wash your hands with soap and water before you change your bandage (dressing). If you do not have soap and water, use hand clinical psychiatrist. ? Change your bandage as told by your doctor. ? Leave stitches (sutures), skin glue, or skin tape (adhesive) strips in place. They may need to stay in place for 2 weeks or longer. If tape strips get loose and curl up, you may trim the loose edges. Do not remove tape strips completely unless your doctor says it is okay. ??? Check your cuts every day for signs of infection. Check for: ? More redness, swelling, or pain. ? More fluid or blood. ? Warmth. ? Pus or a bad smell. Other Instructions ??? If you were sent home with a drain, follow instructions from your doctor about how to use it and care for it. ??? Take deep breaths. This helps to keep your lungs from getting swollen (inflamed). ??? To help with constipation: ? Drink plenty of fluids. ? Eat plenty of fruits and vegetables. ??? Keep all follow-up visits as told by your doctor. This is important. Contact a doctor if: ??? You have more redness, swelling, or pain around a cut from surgery. ??? You have more fluid or blood coming from a cut. ??? Your cut feels warm to the touch. ??? You have pus or a bad smell coming from a cut or a bandage. ??? The edges of a cut break open after the stitches have been taken out. ??? You have pain in your shoulders that gets worse. ??? You feel dizzy or you pass out (faint). ??? You have shortness of breath. ??? You keep feeling sick to your stomach (nauseous). ??? You keep throwing up (vomiting). ??? You get diarrhea or you cannot control your poop. ??? You lose your appetite. ??? You have swelling or pain in your legs. Get help right away if: ??? You have a fever. ??? You get a rash. ??? You have trouble breathing. ??? You have sharp pains in your chest. This information is not intended to replace advice given to you by your health care provider. Make sure you discuss any questions you have with your health care provider. Document Released: 02/01/2010 Document Revised: 09/12/2016 Document Reviewed: 09/25/2015 Elsevier Interactive Patient Education ? 2019 [employer] documented in this encounter Plan of Treatment Not on file documented as of this encounter Visit Diagnoses Not on filedocumented in this encounter
--- OUTSIDE RECORDS SUMMARY | 2024-10-26 16:28 | XMS_ITS | Encounter Summary ---
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 Name Role Phone Unavailable Primary Care Provider Unavailabl e Encounter Details Date Type Department Care Team (Late st Contact Info) Description 11/28/2018 Transcribed Document [facility] [place] [facility] [address] ProviderSebastian MD [facility] [place], [place] [id number] Social History Tobacco Use Types Packs/Day Years Used Date Smoking Tobacco: Never Assessed Comments Unknown Sex and Gender Information Value Date Recorded Sex Assigned at Female 10/16/2021 4:08 PM CDT Legal Sex Female 4:08 PM CDT Gender Identity Female 10/16/2021 4:08 PM CDT Sexual Orientation Not on file documented as of this encounter Miscellaneous Notes * Cerner Conversion Note - Historical ProviderMD - 11/28/2018 4:25 PM CDT Nursing Discharge Summary Entered On: 11/28/2018 16:25 EDT Performed On: 11/28/2018 16:25 EDT by GT KAUR RN Discharge Documentation Discharge Date/Time : 11/28/2018 14:38 EDT Patient Disposition, General : Discharge Discharge To : Home with ambulatory/outpatient follow-up Mode Of Departure, General Discharge : Wheelchair Accompanied By, Discharge : Spouse IV Discontinued : Yes Prescriptions Given to Patient : Yes GT KAUR RN - 11/28/2018 16:25 EDT documented in this encounter Plan of Treatment Not on file documented as of this encounter Visit Diagnoses Not on filedocumented in this encounter
--- OUTSIDE RECORDS SUMMARY | 2024-10-26 16:28 | XMS_ITS | Encounter Summary ---
Author Organization [employer] ([place], [place], [place], [place]) Address [address] [place] [address] Care Team Providers Care Vtc Technician Name Role Phone Unavailable Primary Care Provider Unavailabl e Encounter Details Date Type Department Care Team (Late st Contact Info) Description 11/27/2018 Transcribed Document [facility] [address] [place] [address] Juan Morales MD [address] [facility] [address] [place] [id number] Social History Tobacco Use Types Packs/Day Years Used Date Smoking Tobacco: Never Assessed Comments Unknown Sex and Gender Information Value Date Recorded Sex Assigned at Female 10/16/2021 4:08 PM CDT Legal Sex Female 4:08 PM CDT Gender Identity Female 10/16/2021 4:08 PM CDT Sexual Orientation Not on file documented as of this encounter Miscellaneous Notes * Cerner Conversion Note - Juan Morales MD - 11/27/2018 7:08 PM EDT DATE OF ADMISSION: 11/27/2018 CHIEF COMPLAINT: Abdominal pain. REFERRING PHYSICIAN: Dr. Abbott. HISTORY OF PRESENT ILLNESS: Patient is a 48-year-old female, who started having abdominal pain, mid epigastric, starting last night. She has also had lack of appetite and nausea. Pain is now radiated down to the right lower quadrant. No emesis. No bloody bowel movements. She developed a fever of 101.2 upon evaluation in the ED. CT scan is consistent with acute appendicitis. PAST MEDICAL HISTORY: Includes: 1. Hypertension. 2. Chronic migraines. PAST SURGICAL HISTORY: 1. Breast reduction. 2. x2. 3. Knee arthroscopy. ALLERGIES: PENICILLIN. MEDICATIONS: 1. Lisinopril. 2. Topamax. 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 No alcohol or tobacco use. FAMILY HISTORY: Significant for hypertension, diabetes, malignancies in both sides. REVIEW OF SYSTEMS: GENERAL: Positive for chills and fever. HEENT: No visual changes, hearing deficits, neck or throat pain. CARDIOVASCULAR: No chest pain, palpitations. PULMONARY: No wheezing, coughing, hemoptysis. GI: As per HPI. : No hematuria or dysuria. HEME: No history of bleeding disorders, history of DVT. ENDOCRINE: No excessive thirst or heat or cold intolerance. SKIN: No rashes, hives. MUSCULOSKELETAL: No lower extremity swelling. NEUROLOGIC: History of migraines. PHYSICAL EXAMINATION: Patient is a pleasant female, appears to be in no acute distress. She is currently afebrile 99.3, pulse of 95, blood pressure is 110/67. HEENT: Head is normocephalic. Sclerae are anicteric. Neck is supple. No cervical lymphadenopathy. No carotid bruits. Mouth has membranous mucosa and mouth is dry. Lungs are clear to auscultation anteriorly without wheezing or rhonchi. HEART: Regular rate, rhythm. No murmurs, gallops, or rubs. Her abdomen is soft, but very tender mostly in the left lower quadrant of the abdomen. No rigidity or guarding. Lower extremities are cold feet with palpable dorsalis pedis pulses bilaterally. Neurologically, she is intact without any focal deficits. IMPRESSION: This patient is a 48-year-old female with acute appendicitis on both CT scan and clinical findings. RECOMMENDATION: I have discussed proceeding with laparoscopic cholecystectomy. She has been given IV antibiotics in preparation for surgery. I have discussed the operative risks and benefits with her and she agrees to proceed. Juan Morales M.D. Dict: 11/27/2018 18:08:43 Trans: 11/27/2018 19:38:35 CC1: Juan Morales M.D. documented in this encounter Plan of Treatment Not on file documented as of this encounter Visit Diagnoses Not on filedocumented in this encounter
--- OUTSIDE RECORDS SUMMARY | 2024-10-26 16:28 | XMS_ITS | Referral Summary ---
Author Organization [employer] ([place], [place], [place], [place]) Address [address] [place] [address] Care Team Providers Care Firewall Engineer Name Role Phone Unavailable Primary Care Provider Unavailabl e Social History Tobacco Use Types Packs/Day Years Used Date Smoking Tobacco: Never Assessed Comments Unknown Sex and Gender Information Value Date Recorded Sex Assigned at Female 10/16/2021 4:08 PM CDT Legal Sex Female 4:08 PM CDT Gender Identity Female 10/16/2021 4:08 PM CDT Sexual Orientation Not on file Plan of Treatment Not on file
--- OUTSIDE RECORDS SUMMARY | 2024-10-26 16:28 | XMS_ITS | Encounter Summary ---
Author Organization [employer] ([place], [place], [place], [place]) Address [address] [place] [address] Care Team Providers Care Marketing Liaison Name Role Phone Unavailable Primary Care Provider Unavailabl e Encounter Details Date Type Department Care Team (Late st Contact Info) Description 11/27/2018 Transcribed Document [facility] [place] Family Medicine [facility] [place] [address] ProviderSebastian MD [address] [place] [address] Social History Tobacco Use Types Packs/Day Years Used Date Smoking Tobacco: Never Assessed Comments Unknown Sex and Gender Information Value Date Recorded Sex Assigned at Female 10/16/2021 4:08 PM CDT Legal Sex Female 4:08 PM CDT Gender Identity Female 10/16/2021 4:08 PM CDT Sexual Orientation Not on file documented as of this encounter Miscellaneous Notes * Cerner Conversion Note - Sebastian ProviderMD - 11/27/2018 6:26 PM CDT [facility] [place] Main OR IntraOp Summary Primary Physician: GENARO AWAD MD-SUR Finalized Date/Time: 11/30/18 10:32:12 Pt. Name: RAVEN HAIR D.O.B./Sex: 1970 Female Med Rec #: [id number] Physician: JUAN ELLIOTT MD-[facility] Financial #: [id number] Pt. Type: O Room/Bed: [facility]/ Admit/Disch: 11/27/18 19:02:00 - 11/28/18 14:38:00 Institution: [facility] IntraOp Case Attendance Entry 1 Entry 2 Entry 3 Case Attendee GENARO AWAD MD-FLY FARRUKH GEORGE, Raegan Haines, Residential Glazier Role Performed Surgeon/Proceduralist, Chlorinator, First Scrub, First First Time In 11/27/18 18:13:00 11/27/18 18:13:00 11/27/18 18:13:00 Time Out 11/27/18 18:59:00 11/27/18 18:59:00 11/27/18 18:59:00 Procedure Appendectomy Appendectomy Appendectomy Laparoscopic Laparoscopic Laparoscopic Other Attendee Superficial Wound Closed By: Last Modified By: FARRUKH GEORGE RN MARX, CONNIE, RN MARX, CONNIE, RN 11/27/18 18:57:57 11/27/18 18:57:57 11/27/18 18:57:57 Entry 4 Entry 5 Case Attendee ABELARDO ANDREWS PA STIGERS, DAVID, MD Role Performed Physician certified pharmacist assistant Anesthesiologist Time In 11/27/18 18:13:00 11/27/18 18:13:00 Time Out 11/27/18 18:59:00 11/27/18 18:59:00 Procedure Appendectomy Appendectomy Laparoscopic Laparoscopic Other Attendee Superficial Wound Closed By: Last Modified By: FARRUKH GEORGE RN MARX, CONNIE, RN 11/27/18 18:57:57 11/27/18 18:57:57 [facility] IntraOp Case Attendance Audit 11/27/18 18:57:57 Medical Imaging Technician: MARXCO Modifier: MARXCO 1 <+> Time Out 1 <*> Procedure Appendectomy Laparoscopic 2 <+> Time Out 2 <*> Procedure Appendectomy Laparoscopic 3 <+> Time Out 3 <*> Procedure Appendectomy Laparoscopic 4 <+> Time Out 4 <*> Procedure Appendectomy Laparoscopic 5 <+> Time Out 5 <*> Procedure Appendectomy Laparoscopic 11/27/18 18:34:26 Medical Imaging Technician: MARXCO Modifier: MARXCO <+> 1 Procedure 2 <*> Procedure Appendectomy Laparoscopic 3 <*> Procedure Appendectomy Laparoscopic 4 <*> Procedure Appendectomy Laparoscopic 5 <*> Procedure Appendectomy Laparoscopic 11/27/18 18:30:12 Medical Imaging Technician: MARXCO Modifier: MARXCO <+> 1 Time In 2 <+> Time In 2 <*> Procedure Appendectomy Laparoscopic 3 <+> Time In 3 <*> Procedure Appendectomy Laparoscopic 4 <+> Time In 4 <*> Procedure Appendectomy Laparoscopic 5 <+> Time In 5 <*> Procedure Appendectomy Laparoscopic [facility] IntraOp Case Times Entry 1 Patient In Room Time 11/27/18 18:13:00 Out Room Time 11/27/18 18:59:00 Anesthesia Start Time 11/27/18 18:13:00 Stop Time 11/27/18 18:59:00 Anesthesia Ready 11/27/18 18:13:00 Surgery / Procedure Times Start Time 11/27/18 18:26:00 Stop Time 11/27/18 18:56:00 Last Modified By: FARRUKH GEORGE RN 11/27/18 18:57:47 [facility] IntraOp Case Times Audit 11/27/18 18:57:47 Medical Imaging Technician: MARXCO Modifier: MARXCO <+> 1 Out Room Time <+> 1 Stop Time <+> 1 Stop Time 11/27/18 18:27:56 Medical Imaging Technician: MARXCO Modifier: MARXCO <+> 1 Start Time <+> 1 Start Time <+> 1 Anesthesia Ready [facility] IntraOp Cautery Entry 1 ESU Identification Cautery Type Monopolar ESU ID Number [id number] ID Type Hospital Number Cautery Settings Cut Setting 0 Coag Setting 30 ESU Grounding Pad Ground Pad Type Adult Grounding Pad Site Right thigh Grounding Pad FARRUKH GEORGE RN Applied By Grounding Pad Site Intact Skin Condition Before Cautery Grounding Pad Site Intact Skin Condition After Cautery Last Modified By: FARRUKH GEORGE RN 11/27/18 18:12:19 [facility] IntraOp Communication Entry 1 Communication To Family/Significant other Communication By FARRUKH GEORGE, CHAPARRITA Last Modified By: FARRUKH GEORGE RN 11/27/18 18:12:27 [facility] IntraOp Counts Verification Entry 1 Procedure Appendectomy Laparoscopic Count Info Count Type Sponge, Sharps, Instrument Counts Verification Baseline/pre-procedure Sequence Count Results Not Applicable Counts Performed By Count Performed By Raegan De Santiago, (Scrub) Residential Glazier Count Performed By FARRUKH GEORGE, RN (RN) Last Modified By: FARRUKH GEORGE RN 11/27/18 18:12:41 [facility] IntraOp Counts Final Entry 1 Procedure Appendectomy Laparoscopic Final Count Info Count Type Sponge, Sharps Counts Verification Skin Closure/end of Sequence procedure Count Results Correct, surgeon notified Counts Performed By Count Performed By Imbriglio, Raegan, (Scrub) Residential Glazier Count Performed By FARRUKH GEORGE RN (RN) Last Modified By: FARRUKH GEORGE RN 11/27/18 18:56:32 [facility] IntraOp Cultures and Spec Summary Entry 1 Cultrures and Specimens Specimen Ordered: Yes Test(s) Routine/Path-Lab Requested/Final Disposition Last Modified By: FARRUKH GEORGE RN 11/27/18 18:12:46 [facility] IntraOp Departure from OR Entry 1 Integumentary Assessment Transfer/Handoff Transfer to PACU Phase I Handoff Method Bedside/Face to face Post-op Transport Stretcher/Gurney Via Patient Transport FARRUKH GEORGE RN Accompanied by Last Modified By: FARRUKH GEORGE RN 11/27/18 18:12:50 [facility] IntraOp Dressing and Packing Entry 1 Type Dressing Location abdomen Wound Dressing Item 2x2's Last Modified By: FARRUKH GEORGE RN 11/27/18 18:17:10 [facility] IntraOp Fire Risk Assessment Entry 1 Fire Info Surgical Site or 0- No Incision Above the Xyphoid Open O2 Source 0- No (Mask or Cannula) Available Ignition 0- No (ESU, Laser, Light Source) Fire Risk 1 Assessment Score Fire Score Fire Risk Yes Assessment Complete Fire Risk FARRUKH GEORGE RN Assessment Verified By Fire Risk 11/27/18 18:13:00 Assessment Verified Date/Time Fire Risk Last Modified By: FARRUKH GEORGE RN 11/27/18 18:28:23 [facility] IntraOp General Case Media Assistant 1 Case Information OR OR 07 SJE Case Level 1 Room Verified Yes Wound Class II - Clean-Contaminated Specialty SN General Anesthesia Type General ASA Class 2E Diagnosis Preop Diagnosis acute appendicitis Postop Same As Preop Yes Postop Diagnosis acute appendicitis Last Modified By: FARRUKH GEORGE RN 11/27/18 18:29:08 [facility] IntraOp Intraoperative Assessment Entry 1 Valid History / Yes Physical in Chart Preoperative Yes Checklist Reviewed/Evaluated Patient is Latex No Sensitive Last Modified By: FARRUKH GEORGE RN 11/27/18 18:29:56 [facility] IntraOp Intraoperative Equipment Entry 1 Type Equipment Equipment Intraop Monitoring Antiembolic Devices Antiembolic Devices Sequential compression device, knee high Antiembolic Device Bilateral Location Scopes Photo/Video Documentation Last Modified By: FARRUKH GEORGE RN 11/27/18 18:33:36 [facility] IntraOp Medication Admin Entry 1 Medication/Irrigant Marcaine 0.5% w/ epinephrine 1:200,000 30ml vial - [id number] Route of local Administration Dose Dose 30 Volume qs Administered By GENARO AWAD MD-FLY Procedure Irrigation Last Modified By: FARRUKH GEORGE RN 11/27/18 18:31:07 [facility] IntraOp Patient Positioning Entry 1 Procedure Appendectomy Laparoscopic Body Position Supine Left Arm Position Secured on padded arm board Right Arm Position Secured on padded arm board Left Leg Position Uncrossed, parallel Right Leg Position Uncrossed, parallel Feet Uncrossed Yes Pressure Points Yes Checked Positioning Devices Arm Board, Safety Strap, Thighs Positioned By FARRUKH GEORGE RN, Raegan De Santiago, Pato Baer, ABELARDO ANDREWS PA Position Verified Positioning Yes Verified by Anesthesia Positioning Yes Verified by Surgeon Last Modified By: FARRUKH GEORGE RN 11/27/18 18:34:23 [facility] IntraOp Sign In Entry 1 Patient, Site, Yes Procedure Identified Surgical Consent Yes Confirmed Relevant Surgical Yes Documents Available Surgical Site N/A Marked by person performing procedure Anesthesia Machine Yes Check Completed Medication Checks Yes Completed Allergies Yes Airway Difficult Yes Airway/Aspiration Intervention Equipment Available Blood Loss Risk Yes Blood Loss Yes Intervention Equipment Prepared and Ready Hypothermia Risk Yes Warming Measures Yes Taken Last Modified By: FARRUKH GEORGE RN 11/27/18 18:30:09 [facility] Intra Op Sign Out Entry 1 RN Confirmation Surgical Yes Procedure(s) Identified Instrument, Sponge Yes and Sharps Counts Correct/Documented Equipment Problems N/A Documented Specimen Labeled Yes Correctly Urinary Catheter N/A Documented in IView Schafer Patient Yes Recovery Concerns Reviewed with Anesthesia Provider, Surgeon and RN Schafer Patient Yes Management Concerns Reviewed with Anesthesia Provider, Surgeon and RN Safety Checklist Yes Elements Complete? RN Sign Out FARRUKH GEORGE RN Signature RN Sign Out 11/27/18 18:57:00 Signature Date/Time Plan of Care Outcome - Fire Risk OUTCOME STATEMENT: Goal met Patient is free from injury related to surgical fire Plan of Care Outcome - Pt Positioning OUTCOME STATEMENT: Goal met Absence of signs and symptoms of positioning injury. Plan of Care Outcome - Skin Prep OUTCOME STATEMENT: Goal met Intraoperative care is consistent with measures to prevent infection Plan of Care Outcome - Xray/Images OUTCOME STATEMENT: Goal met Absence of observable signs or symptoms of radiation injury Plan of Care Outcome - Counts OUTCOME STATEMENT: Goal met Absence of signs and symptoms of injury related to extraneous objects Last Modified By: FARRUKH GEORGE RN 11/27/18 18:57:56 [facility] IntraOp Skin Prep Entry 1 Procedure Appendectomy Laparoscopic Prescribed Yes Pre-Surgical Prep Completed Prep Area abdomen Intraop Prep Prep Agents Chloraprep Prep by FARRUKH GEORGE RN Hair Removal Last Modified By: FARRUKH GEORGE RN 11/27/18 18:34:34 [facility] IntraOp Surgical Procedures Entry 1 Procedure Appendectomy Laparoscopic Primary Procedure Yes Primary Surgeon GENARO AWAD MD-FLY Start 11/27/18 18:26:00 Stop 11/27/18 18:56:00 Anesthesia Type General Specialty SN General Wound Class II - Clean-Contaminated Last Modified By: FARRUKH GEORGE RN 11/27/18 18:57:50 [facility] IntraOp Surgical Procedures Audit 11/27/18 18:57:50 Medical Imaging Technician: KEITH Modifier: KEITH <+> 1 Stop [facility] IntraOp Time Out Entry 1 Procedure to be Appendectomy Performed Laparoscopic Time Out Time Out Pause Time 11/27/18 18:25:00 All activity Yes suspended (unless life threatening emergency) Team Verbally Correct patient Confirms Information identity, Correct side and site are marked, Consent form is present and accurate, Agreement on the procedure to be done, Correct patient position, Confirm antibiotics have been administered, Confirm the skin prep has dried, Performed in location of procedure after prepped/draped, Performed before each procedure if multiple procedures, Reconcile problems if responses among team members differ Antibiotic Yes Prophylaxis Administered Or In Progress Within the Last 60 Minutes Beta Griselda N/A Administered Venous N/A Thromboembolism Prophylaxis Required Anticipated Critical Events Surgeon None expected Anesthesia Provider None expected Nursing Assures Sterility of instruments Essential Imaging N/A Labeled and Displayed Last Modified By: FARRUKH GEORGE RN 11/27/18 18:29:17 [facility] IntraOp Time Out Audit 11/27/18 18:29:17 Medical Imaging Technician: KEITH Modifier: LIYAHO 1 <*> Beta Griselda Administered N/A 1 <*> All activity suspended (unless life Yes threatening emergency) 1 <*> Venous Thromboembolism Prophylaxis N/A Required 1 <*> Antibiotic Prophylaxis Administered Yes Or In Progress Within the Last 60 Minutes 1 <*> Surgeon None expected 1 <*> Anesthesia Provider None expected 1 <*> Nursing Assures Sterility of instruments 1 <*> Essential Imaging Labeled and N/A Displayed 1 <*> Time Out Pause Time 11/27/18 18:25:00 1 <*> Procedure to be Performed Appendectomy Laparoscopic 1 <*> Team Verbally Confirms Information Correct patient identity, Correct side and site are marked, Consent form is present and accurate, Agreement on the procedure to be done, Correct patient position, Confirm antibiotics have been administered, Confirm the skin prep has dried, Performed in location of procedure after prepped/draped, Performed before each procedure if multiple procedures, Reconcile problems if responses among team members differ Entry 2 was deleted. Higher numbered entries shifted one position to fill the gap. <-> 2 Beta Griselda Administered N/A <-> 2 Venous Thromboembolism Prophylaxis N/A Required <-> 2 Antibiotic Prophylaxis Administered Yes Or In Progress Within the Last 60 Minutes <-> 2 Surgeon None expected <-> 2 Anesthesia Provider None expected <-> 2 Nursing Assures Sterility of instruments <-> 2 Essential Imaging Labeled and N/A Displayed <-> 2 Procedure to be Performed Appendectomy Laparoscopic 11/27/18 18:28:52 Medical Imaging Technician: KEITH Modifier: KEITH 1 <+> Time Out Pause Time 1 <*> Procedure to be Performed Appendectomy Laparoscopic <+> 2 Beta Griselda Administered <+> 2 Venous Thromboembolism Prophylaxis Required <+> 2 Antibiotic Prophylaxis Administered Or In Progress Within the Last 60 Minutes <+> 2 Surgeon <+> 2 Anesthesia Provider <+> 2 Nursing Assures <+> 2 Essential Imaging Labeled and Displayed <+> 2 Procedure to be Performed Case Comments <None> Finalized By: Tanika Carlin, RN Document Signatures Signed By: FARRUKH GEORGE RN 11/27/18 18:57 GT QUACH RN 11/28/18 14:45 Tanika Carlin, CHAPARRITA 11/30/18 10:32 Unfinalized History Date/Time Username Reason for Unfinalizing Freetext Reason for Unfinalizing 11/28/18 14:44 AMRIT Modify Pick List 11/30/18 10:31 MIKAL Modify Pick List Electronically signed by Ad [facility] Conversion Biology Instructor Cerner at 08/07/2022 7:37 PM CDT documented in this encounter Plan of Treatment Not on file documented as of this encounter Visit Diagnoses Not on filedocumented in this encounter
--- OUTSIDE RECORDS SUMMARY | 2024-10-26 16:28 | XMS_ITS | Encounter Summary ---
Author Organization [employer] ([place], [place], [place], [place]) Address [address] [place] [address] Care Team Providers Care Continuous Wave Operator Name Role Phone Unavailable Primary Care Provider Unavailabl e Encounter Details Date Type Department Care Team (Late st Contact Info) Description 11/28/2018 Transcribed Document [facility] [place] [address] [place] [address] ProviderSebastian MD [address] [place] [address] Social History Tobacco Use Types [...] Conversion Note - Historical ProviderMD - 11/28/2018 1:52 PM CDT Stroke/Warfarin Instructions Entered On: 11/28/2018 13:52 EDT Performed On: 11/28/2018 13:52 EDT by YORDAN CISNEROS LPN Stroke/Warfarin Instructions Stroke/TIA Discharge Ins : N/A Warfarin Discharge Ins : N/A YORDAN CISNEROS LPN - 11/28/2018 13:52 EDT documented in this encounter Plan of Treatment Not on file documented as of this encounter Visit Diagnoses Not on filedocumented in this encounter
--- OUTSIDE RECORDS SUMMARY | 2024-10-26 16:28 | XMS_ITS | Encounter Summary ---
Author Organization [employer] ([place], [place], [place], [place]) Address [address] [place] [address] Care Team Providers Care Irrigation Worker Name Role Phone Unavailable Primary Care Provider Unavailabl e Encounter Details Date Type Department Care Team (Late st Contact Info) Description 11/27/2018 Transcribed Document [facility] [place] [facility] [place] [address] ProviderSebastian MD [address] [place] [address] Social History Tobacco Use Types Packs/Day [...] Cerner Conversion Note - Historical ProviderMD - 11/27/2018 5:52 PM CDT ED Discharge Entered On: 11/27/2018 17:53 EDT Performed On: 11/27/2018 17:52 EDT by BARBARA BAIRD RN Discharge Process Patient Disposition : Admit/Observe Personal Belongings With Patient : Yes Patient Education Completed : Yes Teaching Evaluation : Verbalizes understanding Link to Valuables and Belongings form : No IV Discontinued : No BARBARA BAIRD RN - 11/27/2018 17:52 EDT Admission, ED Nurse Report Accepted By : CHAPARRITA Bright, OR Nurse Report Acceptance Time : 11/27/2018 17:30 EDT `Nurse Report (Hand Off) : Called BARBARA BAIRD RN - 11/27/2018 17:52 EDT documented in this encounter Plan of Treatment Not on file documented as of this encounter Visit Diagnoses Not on filedocumented in this encounter
--- OUTSIDE RECORDS SUMMARY | 2024-10-26 16:28 | XMS_ITS | Encounter Summary ---
Author Organization [employer] ([place], [place], [place], [place]) Address [address] [place] [address] Care Team Providers Care Senior Clerk Name Role Phone Unavailable Primary Care Provider Unavailabl e Encounter Details Date Type Department Care Team (Late st Contact Info) Description 11/27/2018 Transcribed Document [facility] Radiology [address] [place] [address] Juan Morales MD [address] [facility] [place] [address] Social History Tobacco Use Types Packs/Day Years Used Date Smoking Tobacco: Never Assessed Comments Unknown Sex and Gender Information Value Date Recorded Sex Assigned at Female 10/16/2021 4:08 PM CDT Legal Sex Female 4:08 PM CDT Gender Identity Female 10/16/2021 4:08 PM CDT Sexual Orientation Not on file documented as of this encounter Miscellaneous Notes * Cerner Conversion Note - uJan Morales MD - 11/27/2018 7:59 PM EDT Patient: YULIYA HAIR Age: 48 years Sex: Female : 1970 Associated Diagnoses: None Author: JUAN MORALES MD-FLY Pre Operative Dx: acute appendicitis Post Operative Dx: acute appendicitis Procedure: laparoscopic appendectomy Surgeon: Dr. Morales Assist: Arden Trevino Findings: perforated retrocecal appendix Complication: none EBL: 20 ml documented in this encounter Plan of Treatment Not on file documented as of this encounter Visit Diagnoses Not on filedocumented in this encounter
--- OUTSIDE RECORDS SUMMARY | 2024-10-26 16:28 | XMS_ITS | Encounter Summary ---
Author Organization [employer] ([place], [place], [place], [place]) Address [address] [place] [address] Care Team Providers Care Sales Operations Assistant Name Role Phone Unavailable Primary Care Provider Unavailabl e Encounter Details Date Type Department Care Team (Late st Contact Info) Description 11/27/2018 Transcribed Document [facility] [place] Family Medicine [facility] [place] [address] ProviderSebastian MD [address] [place] [address] Social History Tobacco Use Types Packs/Day [...] Conversion Note - Historical ProviderMD - 11/27/2018 11:16 AM CDT ED Assessment Entered On: 11/27/2018 11:51 EDT Performed On: 11/27/2018 11:50 EDT by BARBARA BIARD RN ED Quick Look Assessment Level of Consciousness : Alert, Awake Affect/Behavior : Appropriate, Calm, Cooperative Orientation : Oriented x 4 BARBARA BAIRD RN - 11/27/2018 11:50 EDT ED General-Functional Assess Communication Barrier : None Primary Language : Trinidadian Any Spiritual/Cultural Needs or Requests : No Currently in Unsafe Situation : No BARBARA BAIRD RN - 11/27/2018 11:50 EDT Social Habits Smoking Status : Never (less than 100 in lifetime; none in last 30 days) Smokeless Tobacco Status : Never Desires Tobacco Cessation Calc : 0 BARBARA BAIRD RN - 11/27/2018 11:50 EDT Social History (As Of: 11/27/2018 11:51:46 EDT) Gastrointestinal ED Gastrointestinal Assessment WDL : WDL with exceptions Gastrointestinal Symptoms : Abdominal pain, Nausea BARBARA BAIRD RN - 11/27/2018 11:50 EDT documented in this encounter Plan of Treatment Not on file documented as of this encounter Visit Diagnoses Not on filedocumented in this encounter
--- OUTSIDE RECORDS SUMMARY | 2024-10-26 16:28 | XMS_ITS | Encounter Summary ---
Author Organization [employer] ([place], [place], [place], [place]) Address [address] [place] [address] Care Team Providers Care Production Honing Machine Operator Name Role Phone Unavailable Primary Care Provider Unavailabl e Encounter Details Date Type Department Care Team (Late st Contact Info) Description 11/27/2018 Transcribed Document [facility] [place] [facility] [place] [address] ProviderSebastian MD [facility] [place] [address] Social History Tobacco Use Types [...] Conversion Note - Historical ProviderMD - 11/27/2018 12:18 PM CDT Pain Assessment Entered On: 11/27/2018 12:59 EDT Performed On: 11/27/2018 12:59 EDT by BARBARA BAIRD RN Intervention Information: ketorolac Performed by BARBARA BAIRD RN on 11/27/2018 12:29:00 EDT ketorolac,30mg IV Push,Peripheral Line 1 Pain Assessment Pain Assessment : Follow-up assessment Pain Scale Used : 0-10 Scale BARBARA BAIRD RN - 11/27/2018 12:59 EDT Pain Scale Intensity : 4 BARBARA BAIRD RN - 11/27/2018 12:59 EDT Image 4 - Images currently included in the form version of this document have not been included in the text rendition version of the form. documented in this encounter Plan of Treatment Not on file documented as of this encounter Visit Diagnoses Not on filedocumented in this encounter
--- OUTSIDE RECORDS SUMMARY | 2024-10-26 16:28 | XMS_ITS | Clinical Summary ---
Author Organization [employer] ([place], [place], [place], [place]) Address [address] [place] [address] Care Team Providers Care Field Technical Specialist Name Role Phone Unavailable Primary Care Provider [...]
--- OUTSIDE RECORDS SUMMARY | 2024-10-26 16:28 | XMS_ITS | Encounter Summary ---
Author Organization [facility] ([place], [place], [place], [place]) Address [address] [place] [address] Care Team Providers Care Repair Clerk Name Role Phone Unavailable Primary Care Provider Unavailabl e Encounter Details Date Type Department Care Team (Late st Contact Info) Description 11/27/2018 Transcribed Document [facility] Radiology [address] [place] [address] Juan Morales MD [address] [facility] [place] [address] Social History Tobacco Use Types Packs/Day Years [...] Note - Juan Morales MD - 11/27/2018 7:53 PM EDT DATE OF PROCEDURE: 11/27/2018 PREOPERATIVE DIAGNOSIS(ES): Acute appendicitis. POSTOPERATIVE DIAGNOSIS(ES): Perforated retrocecal acute appendicitis. PROCEDURE: Laparoscopic appendectomy. SURGEON: Attending physician: Juan Morales M.D. PRICE LISTER: KYLIE Lester INDICATION: Patient is a 48-year-old female with acute appendicitis based on clinical examination as well as confirmed on CT scan. She has been offered laparoscopic appendectomy. Risks and benefits were explained and understood by the patient who agreed to proceed. OPERATIVE FINDINGS: 1. Retrocecal perforated appendicitis with a fecalith present within an abscess within the cavity 2. A successful appendectomy. OPERATIVE DESCRIPTION: Patient was taken back to the operating room, placed in supine position on the operating table. Following induction of general anesthesia and satisfactory endotracheal intubation, her abdomen was widely prepped and draped in standard sterile fashion. Perioperative antibiotics were administered and she had already voided prior to proceeding for surgery. Her abdomen was widely prepped and draped in sterile fashion. A longitudinal incision was created along the previous periumbilical scar. Blunt dissection was extended down to the abdominal wall fascia and a Veress needle was used to obtain pneumoperitoneum. A blunt 12 mm Optiview trocar was inserted under visual guidance of the scope. Peritoneoscopy confirmed findings of greenish ascites within the right lower quadrant of the abdomen. Two 5 mm trocars were placed, one within the suprapubic and second within the left lower quadrant of the abdomen. The appendix was not well visualized at this point as it was retrocecal. Sharp dissection was used with scissors and cautery to mobilize the cecum. The lateral attachments were divided along the line for medial mobilization. At this point, it was found that patient had a perforation that is close to the very base of her appendix with findings of a fecalith present. The fecalith was removed. An Endo JENNIFFER stapler was used to resect the appendix. A healthy portion of the cecum was contained within the resection site to allow for proper sealing of the ruchi. Blue load was used for the cecal base and a white load for the mesoappendix. There was still some additional bleeding at a very inflamed section of the mesoappendix. This was controlled with a clip sales property manager. Irrigation was performed. There was no further bleeding or other abnormalities noted on peritoneoscopy. The 5 mm trocars were removed under visual guidance of the scope. The fascial defect at the umbilicus was repaired with 0-Vicryl in [id number] fashion. 4-0 Monocryl was used to close the skin incisions. Sterile dressing was applied. Patient was extubated, taken back to Recovery in stable condition. No complications. Juan Morales M.D. Dict: 11/27/2018 18:53:12 Trans: 11/27/2018 19:28:31 CC1: Juan Morales M.D. documented in this encounter Plan of Treatment Not on file documented as of this encounter Visit Diagnoses Not on filedocumented in this encounter
--- OUTSIDE RECORDS SUMMARY | 2024-10-26 16:28 | XMS_ITS | Encounter Summary ---
Author Organization [facility] ([place], [place], [place], [place]) Address [address] [place] [address] Care Team Providers Care Check Viewer Name Role Phone Unavailable Primary Care Provider Unavailabl e Encounter Details Date Type Department Care Team (Late st Contact Info) Description 11/28/2018 Transcribed Document [facility] [place] [address] ProviderSebastian MD [facility] [place] [address] Social History Tobacco Use Types [...] Cerner Conversion Note - Sebastian ProviderMD - 11/28/2018 1:52 PM CDT [place] [id number] YULIYA HAIR :1970 Visit Time:11/27/2018 Your Visit Summary Your Care Team Admitting Physician - JUAN ELLIOTT MD-JAIDEN TANNER, UNKNOWN Attending Physician - GENARO AWAD MD-FLY JUAN ELLIOTT MD-JAIDEN Primary Care Physician - FLORES, NO DR Referring Physician - FLORES, SELF REFERRED Your Diagnosis Abdominal pain Acute appendicitis Acute appendicitis with localized peritonitis, Acute appendicitis with localized peritonitis These Are Your Goals Sit up with out pain Discharge Vitals Temperature 36.6 ??C Heart Rate (Monitored) 82 Respiratory Rate 16 Blood Pressure 104/54 What to do next Instructions From Your Care Team Take incentive spirometer homes and continue to use for approx a week. No driving while taking narcotics and until MD releases you. May remove outer dressings 48 hours after surgery and shower. Let water run over incisions, do not rub. No tub bathing or swimming. No heavy lifting over 10 lbs. Discharge Activity: Discharge Activity: Activity as tolerated Diet: Discharge Diet: Resume usual diet as tolerated Follow-Up Appointments Follow Up with GENARO AWAD When Within 1 week Comments Call for follow up appointment Where: [address] [place] [address] [address] [place] [phone] (1) Medications What How Much When Instructions Next Dose lisinopril (lisinopril 10 mg oral tablet) Every Day 11/29/18 topiramate (Topamax 100 mg oral tablet) Two Times A Day 11/28/18 evening dose Take your medications faithfully. Do NOT skip medication. Do NOT stop taking medications without the direction of a physician. Carry a list of your medications with you at all times, and take this medication list with you to your first follow up visit. Report any side effects. Avoid herbal remedies unless discussed with your physician. As part of your treatment plan, your physician may have prescribed a limited course of a controlled substance. This medication may be given to help people with moderate or severe pain or for other medical conditions, but there are risks involved with treatment. Common side effects may include nausea, constipation, drowsiness, sweating, itching, dry mouth, and rash. More serious side effects may include cognitive and motor impairment, like problems with thinking, concentrating, alertness, and movement (e.g. slowed reflexes), and driving and operating heavy machinery can be dangerous. It is important for you to talk to your physician if you have these side effects or questions. These controlled substances can produce physical dependence and be habit-forming if taken for an extended period of time, which means that the body has gotten used to them and may experience withdrawal symptoms if they are abruptly stopped. Withdrawal symptoms can include runny nose, sweating, goose bumps, diarrhea, abdominal cramping, rapid heartbeat, difficulty sleeping, and nervousness. Please dispose of unused and medications per your retail pharmacy guidance. Allergies penicillin (hives) Immunizations This Visit No Immunizations Found Education Materials Laparoscopic Appendectomy, Adult, Care After These instructions give you information about caring for yourself after your procedure. Your doctor may also give you more specific instructions. Call your doctor if you have any problems or questions after your procedure. Follow these instructions at home: Medicines ??? 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 ? Change your bandage as told by [...] 02/01/2010 Document Revised: 09/12/2016 Document Reviewed: 09/25/2015 [employer] Patient Education ?? 2019 [employer]. ondansetron (oral) (on ELMIRA se vladimir) Priscilla Wells Zuplenz What is the most important information I should know about ondansetron? You should not use ondansetron if you are also using apomorphine (Apokyn). What is ondansetron? Ondansetron blocks the actions of chemicals in the body that can trigger nausea and vomiting. Ondansetron is used to prevent nausea and vomiting that may be caused by surgery, cancer chemotherapy, or radiation treatment. Ondansetron may be used for purposes not listed in this medication guide. What should I discuss with my health care provider before taking ondansetron? You should not use ondansetron if: ?? you are also using apomorphine (Apokyn); or ?? you are allergic to ondansetron or similar medicines (dolasetron, granisetron, palonosetron). To make sure ondansetron is safe for you, tell your doctor if you have: ?? liver disease; ?? an electrolyte imbalance (such as low levels of potassium or magnesium in your blood); ?? congestive heart failure, slow heartbeats; ?? a personal or family history of long QT syndrome; or ?? a blockage in your digestive tract (stomach or intestines). Ondansetron is not expected to harm an unborn baby. Tell your doctor if you are . It is not known whether ondansetron passes into breast milk or if it could harm a nursing baby. Tell your doctor if you are breast-feeding a baby. Ondansetron is not approved for use by anyone younger than 4 years old. Ondansetron orally disintegrating tablets may contain phenylalanine. Tell your doctor if you have phenylketonuria (PKU). How should I take ondansetron? Follow all directions on your prescription label. Do not take this medicine in larger or smaller amounts or for longer than recommended. Ondansetron can be taken with or without food. The first dose of ondansetron is usually taken before the start of your surgery, chemotherapy, or radiation treatment. Follow your doctor's dosing instructions very carefully. Take the ondansetron regular tablet with a full glass of water. To take the orally disintegrating tablet (Zofran ODT): ?? Keep the tablet in its blister pack until you are ready to take it. Open the package and peel back the foil. Do not push a tablet through the foil or you may damage the tablet. ?? Use dry hands to remove the tablet and place it in your mouth. ?? Do not swallow the tablet whole. Allow it to dissolve in your mouth without chewing. ?? Swallow several times as the tablet dissolves. To use ondansetron oral soluble film (strip) (Rosario): ?? Keep the strip in the foil pouch until you are ready to use the medicine. ?? Using dry hands, remove the strip and place it on your tongue. It will begin to dissolve right away. ?? Do not swallow the strip whole. Allow it to dissolve in your mouth without chewing. ?? Swallow several times after the strip dissolves. If desired, you may drink liquid to help swallow the dissolved strip. ?? Wash your hands after using Zuplenz. Measure liquid medicine with the dosing syringe provided, or with a special dose-measuring spoon or medicine cup. If you do not have a dose-measuring device, ask your pharmacist for one. Store at room temperature away from moisture, heat, and light. Store liquid medicine in an upright position. What happens if I miss a dose? Take the missed dose as soon as you remember. Skip the missed dose if it is almost time for your next scheduled dose. Do not take extra medicine to make up the missed dose. What happens if I overdose? Seek emergency medical attention or call the Poison Help line at . Overdose symptoms may include sudden loss of vision, severe constipation, feeling light-headed, or fainting. What should I avoid while taking ondansetron? Ondansetron may impair your thinking or reactions. Be careful if you drive or do anything that requires you to be alert. What are the possible side effects of ondansetron? Get emergency medical help if you have signs of an allergic reaction: rash, hives; fever, chills, difficult breathing; swelling of your face, lips, tongue, or throat. Call your doctor at once if you have: ?? severe constipation, stomach pain, or bloating; ?? headache with chest pain and severe dizziness, fainting, fast or pounding heartbeats; ?? fast or pounding heartbeats; ?? jaundice (yellowing of the skin or eyes); ?? blurred vision or temporary vision loss (lasting from only a few minutes to several hours); ?? high levels of serotonin in the body--agitation, hallucinations, fever, fast heart rate, overactive reflexes, nausea, vomiting, diarrhea, loss of coordination, fainting. Common side effects may include: ?? diarrhea or constipation; ?? headache; ?? drowsiness; or ?? tired feeling. This is not a complete list of side effects and others may occur. Call your doctor for medical advice about side effects. You may report side effects to FDA at 3-101-OVG9306. What other drugs will affect ondansetron? Ondansetron can cause a serious heart problem, especially if you use certain medicines at the same time, including antibiotics, antidepressants, heart rhythm medicine, antipsychotic medicines, and medicines to treat cancer, malaria, HIV or AIDS. Tell your doctor about all medicines you use, and those you start or stop using during your treatment with ondansetron. Taking ondansetron while you are using certain other medicines can cause high levels of serotonin to build up in your body, a condition called 'serotonin syndrome,' which can be fatal. Tell your doctor if you also use: ?? medicine to treat depression; ?? medicine to treat a psychiatric disorder; ?? a narcotic (opioid) medication; or ?? medicine to prevent nausea and vomiting. This list is not complete and many other drugs can interact with ondansetron. This includes prescription and fcmd-qsx-egcecfe medicines, vitamins, and herbal products. Give a list of all your medicines to any healthcare provider who treats you. Where can I get more information? Your pharmacist can provide more information about ondansetron. Remember, keep this and all other medicines out of the reach of children, never share your medicines with others, and use this medication only for the indication prescribed. Every effort has been made to ensure that the information provided by [employer]. ('[employer]') is accurate, up-to-date, and complete, but no guarantee is made to that effect. Drug information contained herein may be time sensitive. [employer] information has been compiled for use by healthcare practitioners and consumers in the [place] and therefore [employer] does not warrant that uses outside of the [place] are appropriate, unless specifically indicated otherwise. [employer]'s drug information does not endorse drugs, diagnose patients or recommend therapy. [employer] drug information is an informational resource designed to assist licensed healthcare practitioners in caring for their patients and/or to serve consumers viewing this service as a supplement to, and not a substitute for, the expertise, skill, knowledge and judgment of healthcare practitioners. The absence of a warning for a given drug or drug combination in no way should be construed to indicate that the drug or drug combination is safe, effective or appropriate for any given patient. [employer] does not assume any responsibility for any aspect of healthcare administered with the aid of information [employer] provides. The information contained herein is not intended to cover all possible uses, directions, precautions, warnings, drug interactions, allergic reactions, or adverse effects. If you have questions about the drugs you are taking, check with your doctor, nurse or pharmacist. Copyright 1021-2603 [employer]. Version: 13.01. Revision Date: 02/09/2016. acetaminophen and hydrocodone (a SEET a MIN oh fen and nolvia droe KOE done) Hycet, Lorcet, [place], Verdrocet, Vicodin, Xodol, Zamicet What is the most important information I should know about acetaminophen and hydrocodone? MISUSE OF OPIOID MEDICINE CAN CAUSE ADDICTION, OVERDOSE, OR . Keep the medication in a place where others cannot get to it. An overdose of acetaminophen can damage your liver or cause . Call your doctor at once if you have pain in your upper stomach, loss of appetite, dark urine, or jaundice (yellowing of your skin or eyes). Taking opioid medicine during may cause life-threatening withdrawal symptoms in the . Fatal side effects can occur if you use opioid medicine with alcohol, or with other drugs that cause drowsiness or slow your breathing. Stop taking this medicine and call your doctor right away if you have skin redness or a rash that spreads and causes blistering and peeling. What is acetaminophen and hydrocodone? Hydrocodone is an opioid pain medication, sometimes called a narcotic. Acetaminophen is a less potent pain reliever that increases the effects of hydrocodone. Acetaminophen and hydrocodone is a combination medicine used to relieve moderate to severe pain. Acetaminophen and hydrocodone may also be used for purposes not listed in this medication guide. What should I discuss with my healthcare provider before taking acetaminophen and hydrocodone? You should not use this medicine if you are allergic to acetaminophen or hydrocodone, or if you have: ?? severe asthma or breathing problems; or ?? a blockage in your stomach or intestines. Tell your doctor if you have ever had: ?? liver disease; ?? a drug or alcohol addiction; ?? kidney disease; ?? a head injury or seizures; ?? urination problems; or ?? problems with your thyroid, pancreas, or gallbladder. If you use opioid medicine while you are , your baby could become dependent on the drug. This can cause life-threatening withdrawal symptoms in the baby after it is born. Babies born dependent on opioids may need medical treatment for several weeks. Do not breast-feed. This medicine can pass into breast milk and cause drowsiness, breathing problems, or in a nursing baby. How should I take acetaminophen and hydrocodone? Follow all directions on your prescription label. Never take this medicine in larger amounts, or for longer than prescribed. An overdose can damage your liver or cause . Tell your doctor if the medicine seems to stop working as well in relieving your pain. Always check your bottle to make sure you have received the correct pills (same brand and type) of medicine prescribed by your doctor. Never share this medicine with another person, especially someone with a history of drug abuse or addiction. MISUSE CAN CAUSE ADDICTION, OVERDOSE, OR . Keep the medicine in a place where others cannot get to it. Selling or giving away acetaminophen and hydrocodone is against the law. Measure liquid medicine carefully. Use the dosing syringe provided, or use a medicine dose-measuring device (not a kitchen spoon). If you need surgery or medical tests, tell the doctor ahead of time that you are using this medicine. You should not stop using this medicine suddenly. Follow your doctor's instructions about tapering your dose. Store at room temperature away from moisture and heat. Keep track of your medicine. You should be aware if anyone is using it improperly or without a prescription. Do not keep leftover opioid medication. Just one dose can cause in someone using this medicine accidentally or improperly. Ask your pharmacist where to locate a drug take-back disposal program. If there is no take-back program, flush the unused medicine down the toilet. What happens if I miss a dose? Since this medicine is used for pain, you are not likely to miss a dose. Skip any missed dose if it is almost time for your next dose. Do not use two doses at one time. What happens if I overdose? Seek emergency medical attention or call the Poison Help line at . An overdose of acetaminophen and hydrocodone can be fatal. The first signs of an acetaminophen overdose include loss of appetite, nausea, vomiting, stomach pain, sweating, and confusion or weakness. Later symptoms may include pain in your upper stomach, dark urine, and yellowing of your skin or the whites of your eyes. Overdose can also cause severe muscle weakness, pinpoint pupils, very slow breathing, extreme drowsiness, or coma. What should I avoid while taking acetaminophen and hydrocodone? Avoid driving or operating machinery until you know how this medicine will affect you. Dizziness or drowsiness can cause falls, accidents, or severe injuries. Do not drink alcohol. Dangerous side effects or could occur. Ask a doctor or pharmacist before using any other medicine that may contain acetaminophen (sometimes abbreviated as APAP). Taking certain medications together can lead to a fatal overdose. What are the possible side effects of acetaminophen and hydrocodone? Get emergency medical help if you have signs of an allergic reaction: hives; difficulty breathing; swelling of your face, lips, tongue, or throat. Opioid medicine can slow or stop your breathing, and may occur. A person caring for you should seek emergency medical attention if you have slow breathing with long pauses, blue colored lips, or if you are hard to wake up. In rare cases, acetaminophen may cause a severe skin reaction that can be fatal. This could occur even if you have taken acetaminophen in the past and had no reaction. Stop taking this medicine and call your doctor right away if you have skin redness or a rash that spreads and causes blistering and peeling. Call your doctor at once if you have: ?? noisy breathing, sighing, shallow breathing; ?? a light-headed feeling, like you might pass out; ?? liver problems--nausea, upper stomach pain, tiredness, loss of appetite, dark urine, liana-colored stools, jaundice (yellowing of the skin or eyes); or ?? low cortisol levels-- nausea, vomiting, loss of appetite, dizziness, worsening tiredness or weakness. Seek medical attention right away if you have symptoms of serotonin syndrome, such as: agitation, hallucinations, fever, sweating, shivering, fast heart rate, muscle stiffness, twitching, loss of coordination, nausea, vomiting, or diarrhea. Serious side effects may be more likely in older adults and those who are overweight, malnourished, or debilitated. Long-term use of opioid medication may affect fertility (ability to have children) in men or women. It is not known whether opioid effects on fertility are permanent. Common side effects include: ?? dizziness, drowsiness, feeling tired; ?? nausea, vomiting, stomach pain; ?? constipation; or ?? headache. This is not a complete list of side effects and others may occur. Call your doctor for medical advice about side effects. You may report side effects to FDA at 4-376-NAY-5390. What other drugs will affect acetaminophen and hydrocodone? You may have breathing problems or withdrawal symptoms if you start or stop taking certain other medicines. Tell your doctor if you also use an antibiotic, antifungal medication, heart or blood pressure medication, seizure medication, or medicine to treat HIV or hepatitis C. Opioid medication can interact with many other drugs and cause dangerous side effects or . Be sure your doctor knows if you also use: ?? cold or allergy medicines, bronchodilator asthma/COPD medication, or a diuretic ('water pill'); ?? medicines for motion sickness, irritable bowel syndrome, or overactive bladder; ?? other narcotic medications--opioid pain medicine or prescription cough medicine; ?? a sedative like Valium--diazepam, alprazolam, lorazepam, Xanax, Klonopin, Versed, and others; ?? drugs that make you sleepy or slow your breathing--a sleeping pill, muscle relaxer, medicine to treat mood disorders or mental illness; ?? drugs that affect serotonin levels in your body--a stimulant, or medicine for depression, Parkinson's disease, migraine headaches, serious infections, or nausea and vomiting. This list is not complete. Other drugs may affect acetaminophen and hydrocodone, including prescription and jjpy-bsr-dnivdzb medicines, vitamins, and herbal products. Not all possible interactions are listed here. Where can I get more information? Your doctor or pharmacist can provide more information about acetaminophen and hydrocodone. Remember, keep this and all other medicines out of the reach of children, never share your medicines with others, and use this medication only for the indication prescribed. Every effort has been made to ensure that the information provided by [employer]. ('[employer]') is accurate, up-to-date, and complete, but no guarantee is made to that effect. Drug information contained herein may be time sensitive. [employer] information has been compiled for use by healthcare practitioners and consumers in the [place] and therefore [employer] does not warrant that uses outside of the [place] are appropriate, unless specifically indicated otherwise. [employer]'s drug information does not endorse drugs, diagnose patients or recommend therapy. [employer] drug information is an informational resource designed to assist licensed healthcare practitioners in caring for their patients and/or to serve consumers viewing this service as a supplement to, and not a substitute for, the expertise, skill, knowledge and judgment of healthcare practitioners. The absence of a warning for a given drug or drug combination in no way should be construed to indicate that the drug or drug combination is safe, effective or appropriate for any given patient. [facility] does not assume any responsibility for any aspect of healthcare administered with the aid of information [facility] provides. The information contained herein is not intended to cover all possible uses, directions, precautions, warnings, drug interactions, allergic reactions, or adverse effects. If you have questions about the drugs you are taking, check with your doctor, nurse or pharmacist. Copyright 9665-0446 [facility]. Version: 15.02. Revision Date: 02/23/2018. Emergency Awareness and Preventative Care STROKE is an EMERGENCY Every Minute Counts Act FAST and Check for these signs: FACE Does the face look uneven? ARM Does one arm drift down? SPEECH Does their speech sound strange? TIME Call at any sign of stroke Stroke Risk Factors Atrial Fibrillation (irregular heartbeat) Diabetes Family history of stroke Heart Disease Heavy alcohol use High Blood Pressure High Cholesterol Physical inactivity and obesity Smoking Cigarette Smoking The facts are clear, cigarette smoking will shorten your life. Smoking can cause many illnesses along the way. As a healthcare provider, we recommend that you stop smoking. Assistance with quitting is available by contacting 1-641-DQQW-NOW. This is a free resource providing counseling, support, and referral. Or you may contact your personal physician. National Suicide Prevention Lifeline: The National Suicide Prevention Lifeline is a national network of local crisis centers that provides free and confidential emotional support to people in suicidal crisis or emotional distress 24 hours a day, 7 days a week. Don't Wait! Stop a Heart Attack Before it Starts What is a heart attack? A heart attack is damage or to a part of the heart from severely decreased or lack of blood flow to the heart. Over time, arteries can become narrow from the buildup of fat and cholesterol, which is called plaque. The plaque can rupture causing a blood clot to form. When the blood clot forms, the artery can become severely narrowed or completely blocked, causing a heart attack. Heart attack is the leading cause of in the [place]. 85% of muscle damage occurs within the first 2 hours. Delay in the recognition of heart attack symptoms increases the chances of . Know the early symptoms of a heart attack: Nausea Feeling of fullness in chest Jaw Pain Pain that travels down one or both arms Fatigue/being tired Anxiety Back Pain Chest pressure, squeezing, or discomfort Shortness of breath Sweating, or a cold sweat Feeling of impending doom There are unusual signs of a heart attack, too! Women, the elderly, and diabetics may present with atypical symptoms: Fainting/dizziness Weakness Confusion Risk Factors for a Heart Attack Some heart disease risk factors, such as age and family history, cannot be changed. Others, like smoking and lack of exercise, can be changed. Smoking High Cholesterol High Blood Pressure Family History Obesity Age Gender (Males are at higher risk) Lack of Exercise Diabetes Diet Stress Excessive Alcohol Intake If you or someone you know is experiencing the signs and symptoms of a heart attack, DON???T DELAY. Call immediately and seek help. If someone collapses, perform CPR! Do not attempt to drive if you are having symptoms of heart attack. Hands-Only CPR Why Hands-Only CPR? Hands-Only CPR has been shown to be as effective as conventional CPR for cardiac arrests that occur outside of a hospital. Survival depends on immediately receiving CPR from someone nearby. How do you perform Hands-Only CPR? There are two easy steps: Call if you see a teen or adult collapse Push hard and fast in the center of the chest at a beat of 100 beats per minute. Save a life! 4 WAYS TO GET AHEAD OF SEPSIS SEPSIS is a MEDICAL EMERGENCY. Time matters! Infections put you and your family at risk for a life-threatening condition called sepsis. Sepsis is the body's extreme response to an infection. It is life-threatening, and without timely treatment, sepsis can rapidly lead to tissue damage, organ failure, and . Sepsis happens when an infection you already have-in your skin, lungs, urinary tract or somewhere else-triggers a chain reaction throughout your body. 1 PREVENT INFECTIONS Take good care of chronic conditions. Talk to your doctor about getting the recommended vaccines. 2 PRACTICE GOOD HYGIENE Wash your hands frequently. Keep cuts or open sores clean and covered until they are healed. 3 KNOW THE SYMPTOMS Confusion or disorientation Shortness of breath High heart rate Fever, shivering, or feeling very cold Extreme pain or discomfort Clammy or sweaty skin 4 ACT FAST Get medical care IMMEDIATELY if you suspect sepsis or if you have an infection that is not getting better or is getting worse. To learn more about sepsis and how to prevent infections, visit www.cdc.gov/sepsis. Test Results Laboratory or Other Results This Visit (last charted value for your 11/27/2018 visit) Hematology 11/28/18 02:56:00 WBC: 18.5 K/uL -- Normal range between ( 3.9 and 10.0 ) RBC: 4.09 Million/uL -- Normal range between ( 3.93 and 5.22 ) Hct: 34.1 % -- Normal range between ( 34.1 and 44.9 ) Hgb: 10.7 Gram/dL -- Normal range between ( 11.2 and 15.7 ) Platelet Count: 179 K/uL -- Normal range between ( 163 and 369 ) MCH: 26.2 pg -- Normal range between ( 25.6 and 32.2 ) MCHC: 31.4 Gram/dL -- Normal range between ( 32.3 and 36.5 ) MCV: 83.4 fL -- Normal range between ( 79.0 and 94.8 ) Slide Review: No Eos %: 0.0 % -- Normal range between ( 1.0 and 7.0 ) Imperial #: 0.59 K/uL -- Normal range between ( 0.24 and 0.82 ) Eos #: 0.00 K/uL -- Normal range between ( 0.04 and 0.54 ) Imperial %: 3.2 % -- Normal range between ( 4.7 and 12.5 ) Baso %: 0.1 % -- Normal range between ( 0.0 and 1.0 ) Baso #: 0.02 K/uL -- Normal range between ( 0.01 and 0.08 ) RDW: 14.7 % -- Normal range between ( 11.6 and 14.4 ) Neut %: 91.5 % -- Normal range between ( 34.0 and 71.0 ) Neut #: 16.89 K/uL -- Normal range between ( 1.56 and 6.13 ) Lymph %: 4.5 % -- Normal range between ( 19.3 and 53.0 ) Lymph #: 0.84 K/uL -- Normal range between ( 1.18 and 3.74 ) MPV: 11.7 fL -- Normal range between ( 9.4 and 12.4 ) IG#: 0 x10(3)/uL IG%: 1 % -- Normal range between ( 0 and 1 ) Urinalysis 11/27/18 11:38:00 Ur RBC: None Seen Urine Nitrite: Negative Urine Leukocyte Esterase: Negative Urine Appearance: Clear Urine Glucose Dipstick: Negative Urine Blood Dipstick: Negative Urine Urobilinogen Dipstick: 0.2 EU/dL -- Normal range between ( 0.2 and 1.0 ) Urine Protein Dipstick: 30 Ur Bacteria: Trace Ur Squamous Epithelial Cells: 5-10 /HPF Urine Color: Yellow Ur WBC: 2-5 /HPF Urine Ketones Dipstick: Trace Urine pH Dipstick: 6.5 -- Normal range between ( 6.0 and 8.0 ) Urine Bilirubin Dipstick: Negative Urine Specific [place]: 1.024 -- Normal range between ( 1.005 and 1.030 ) Urine Type.: U [facility] General Chemistry 11/28/18 02:56:00 Creatinine Level: 0.90 mg/dL -- Normal range between ( 0.55 and 1.02 ) Sodium Level: 140 mmol/L -- Normal range between ( 136 and 146 ) Potassium Level: 4.6 mmol/L -- Normal range between ( 3.5 and 5.1 ) Chloride Level: 112 mmol/L -- Normal range between ( 102 and 112 ) Carbon Dioxide Level: 22 mmol/L -- Normal range between ( 21 and 32 ) Anion Gap: 11 -- Normal range between ( 9 and 20 ) Bun/Creatinine: 16.7 -- Normal range between ( 8.0 and 20.0 ) Calcium Level: 7.7 mg/dL -- Normal range between ( 8.5 and 10.1 ) eGFR : >60 mL/min/1.73m2 eGFR NonAfrican: >60 mL/min/1.73m2 Glucose Level: 164 mg/dL -- Normal range between ( 74 and 106 ) Blood Urea Nitrogen: 15 mg/dL -- Normal range between ( 7 and 22 ) 11/27/18 11:38:00 Bilirubin Total: 1.0 mg/dL -- Normal range between ( 0.2 and 1.3 ) A/G Ratio: 1.3 -- Normal range between ( 1.1 and 2.5 ) ALT: 17 Units/Liter -- Normal range between ( 12 and 78 ) AST: 11 Units/Liter -- Normal range between ( 5 and 37 ) Globulin: 3.3 Gram/dL -- Normal range between ( 1.5 and 4.5 ) Alk Phos: 62 Units/Liter -- Normal range between ( 27 and 136 ) Lactic Acid Level: 1.6 mmol/L -- Normal range between ( 0.4 and 2.0 ) Protein Total: 7.6 Gram/dL -- Normal range between ( 6.4 and 8.2 ) Albumin Level: 4.3 Gram/dL -- Normal range between ( 3.4 and 5.0 ) Lipase Level: 134 Units/Liter -- Normal range between ( 73 and 393 ) Computed Tomography 11/27/18 14:51:57 CT Abdomen Pelvis W: CT Abdomen Pelvis W Patient Name:YULIYA HAIR I have received and understand this information and was given the opportunity to ask questions. Patient/Medical Physiologist Name: Patient/Medical Physiologist Signature: Relationship to Patient: Clinician/Hospital Medical Physiologist Signature: Date: documented in this encounter Plan of Treatment Not on file documented as of this encounter Visit Diagnoses Not on filedocumented in this encounter
--- OUTSIDE RECORDS SUMMARY | 2024-10-26 16:28 | XMS_ITS | Encounter Summary ---
Author Organization [employer] ([place], [place], [place], [place]) Address [address] [place] [address] Care Team Providers Care Pest Control Applicator Name Role Phone Unavailable Primary Care Provider Unavailabl e Encounter Details Date Type Department Care Team (Late st Contact Info) Description 11/27/2018 Transcribed Document [facility] [place] Family Medicine [facility] [place] [address] ProviderSebastian MD [address] [place] [address] Social History Tobacco Use Types Packs/Day [...] ProviderMD - 11/27/2018 11:16 AM CDT ED Triage Entered On: 11/27/2018 11:26 EDT Performed On: 11/27/2018 11:21 EDT by JENNIFER PRADO ED Triage Across the Room Triage Date/Time : 11/27/2018 11:21 EDT JENNIFER PRADO - 11/27/2018 11:21 EDT Chief Complaint : Sent from Dr Toure's office for poss appy. C/o abd pain, fever, and constipation since yesterday JENNIFER RPADO - 11/27/2018 11:28 EDT JENNIFER PRADO - 11/27/2018 11:28 EDT DCP GENERIC CODE Tracking Group : [facility] [place] Tracking Acuity : 3 - Urgent JENNIFER PRADO - 11/27/2018 11:21 EDT Mode of Arrival : Ambulatory Transported to ED by : Private vehicle To Room Via : Ambulate Accompanied By : Step sibling ED Vital Signs : Document Height & Weight : Document ED Allergies : Document ED Reason for Visit : Document JENNIFER PRADO - 11/27/2018 11:21 EDT Infectious Disease History Infectious Disease History : None Fever/Chills Last 48 Hours : Yes Experiencing Infectious Disease Symptoms : Abdominal pain Travel To Regions with Travel Advisories : No Travel Outside [place] Within Last 30 Days : No Contact With Traveler to Advisory Region : No Tuberculosis Symptoms : None GIRISH PRADOA - 11/27/2018 11:21 EDT Vital Signs ED Temperature Source : Tympanic Temperature Mode : Fahrenheit Temperature, Fahrenheit : 99.4 Deg F ED Pain : Yes Clinical Temperature, C : 37.4 Deg C Peripheral Pulse Rate : 106 bpm (HI) Respiratory Rate : 18 Breaths/Min Systolic Blood Pressure : 121 mmHg Diastolic Blood Pressure : 74 mmHg Oxygen Saturation : 96 % RASHAADMarcio JENNIFER - 11/27/2018 11:21 EDT Allergy (As Of: 11/27/2018 11:26:06 EDT) Allergies (Active) penicillin Estimated Onset Date: Unspecified ; Reactions: hives ; Created By: JENNIFER PRADO; Reaction Status: Active ; Category: Drug ; Substance: penicillin ; Type: Allergy ; Updated By: JENNIFER PRADO; Reviewed Date: 11/27/2018 11:24 EDT Diagnosis Control ED (As Of: 11/27/2018 11:26:06 EDT) Problems(Active) HTN (hypertension) (SNOMED CT :6860446518 ) Name of Problem: HTN (hypertension) ; Recorder: JENNIFER PRADO; Confirmation: Confirmed ; Classification: Medical ; Code: [id number] ; Contributor System: [employer] ; Last Updated: 11/27/2018 11:25 EDT ; Life Cycle Date: 11/27/2018 ; Life Cycle Status: Active ; Vocabulary: SNOMED CT Diagnoses(Active) Abdominal pain Date: 11/27/2018 ; Diagnosis Type: Reason For Visit ; Confirmation: Complaint of ; Clinical Dx: Abdominal pain ; Classification: Medical ; Clinical Service: Emergency medicine ; Code: PNED ; Probability: 0 ; Diagnosis Code: [id number] ED Height and Weight Height Source : Stated Height Entry Format : [place] Height, Feet : 5 ft(Converted to: 152 cm, 60 Inch) Height, Inches : 3 Inch(Converted to: 0 ft 3 Inch, 7.62 cm) Clinical Height : 160.02 cm Weight Source, ED : Critical estimated dosing weight Weight Entry Format : [place] Weight, Pounds : 180 lb Clinical Dosing Weight : 81.82 kg Body Surface Area (BSA) : 1.85 m2 Body Mass Index : 32 kg/m2 (HI) [place] Body Weight (IBW) : 52.02 kg JENNIFER PRADO 11/27/2018 11:21 EDT Pain Assessment Pain Assessment : Initial assessment Pain Scale Used : 0-10 Scale JENNIFER PRADO 11/27/2018 11:21 EDT Pain Scale Intensity : 8 JENNIFER PRADO 11/27/2018 11:21 EDT Image 4 - Images currently included in the form version of this document have not been included in the text rendition version of the form. documented in this encounter Plan of Treatment Not on file documented as of this encounter Visit Diagnoses Not on filedocumented in this encounter
--- OUTSIDE RECORDS SUMMARY | 2024-10-26 16:28 | XMS_ITS | Encounter Summary ---
Author Organization [employer] ([place], [place], [place], [place]) Address [address] [place] [address] Care Team Providers Care Rewrite Editor Name Role Phone Unavailable Primary Care Provider Unavailabl e Encounter Details Date Type Department Care Team (Late st Contact Info) Description 11/27/2018 Transcribed Document [facility] [place] Family Medicine [facility] [place] [address] ProviderSebastian MD [facility] [place] [address] Social History Tobacco Use Types [...] Conversion Note - Historical ProviderMD - 11/27/2018 11:53 AM CDT ED Event Note Entered On: 11/27/2018 11:53 EDT Performed On: 11/27/2018 11:53 EDT by BARBARA BAIRD RN ED Event Note ED Event Date/Time : 11/27/2018 11:53 EDT ED Event Location : Assigned room ED Description of Event : PT c/o right sided abdominal and side pain, /, reports nausea, denies vomiting, states pain is worse with eating BARBARA BAIRD RN - 11/27/2018 11:53 EDT documented in this encounter Plan of Treatment Not on file documented as of this encounter Visit Diagnoses Not on filedocumented in this encounter
--- OUTSIDE RECORDS SUMMARY | 2024-10-26 16:28 | XMS_ITS | Encounter Summary ---
Author Organization [employer] ([place], [place], [place], [place]) Address [address] [place] [address] Care Team Providers Care Dental Ceramist Helper Name Role Phone Unavailable Primary Care Provider Unavailabl e Encounter Details Date Type Department Care Team (Late st Contact Info) Description 11/27/2018 Transcribed Document [facility] [place] [facility] [place] [facility] [place] [address] ProviderSebastian MD [address] [place] [address] Social History Tobacco Use Types Packs/Day [...] Conversion Note - Historical ProviderMD - 11/27/2018 6:26 PM CDT [facility] [place] Summary Primary Physician: GENARO AWAD MD-FLY Finalized Date/Time: 11/27/18 20:27:00 Pt. Name: YULIYA HAIR/Sex: 1970 Female Med Rec #: [id number] Physician: JUAN ELLIOTT MD-EMR Financial #: [id number] Pt. Type: O Room/Bed: [facility]/ Admit/Disch: 11/27/18 19:02:00 - Institution: [facility] [place] PAC[place] Case Times Entry 1 In PACU I 11/27/18 19:03:00 Ready for PACU 11/27/18 19:33:00 Discharge Discharge from PACU 11/27/18 20:15:00 I Last Modified By: Katie Lion Rn Patient Care Bedside 11/27/18 20:26:43 [facility] Main OR PACU Case Times Audit 11/27/18 20:26:43 [employer]: LANE Modifier: LANE <+> 1 Ready for PACU Discharge <+> 1 Discharge from PACU I [facility] Main OR PACU Acuity Entry 1 Start Time 11/27/18 19:33:00 Stop Time 11/27/18 20:15:00 Acuity Level [facility] PACU Acuity I Last Modified By: Katie Lion Rn Patient Care Bedside 11/27/18 20:26:58 Finalized By: Katie Lion Rn Patient Care Bedside Document Signatures Signed By: Katie Lion Rn Patient Care Bedside 11/27/18 20:27 Electronically signed by Thanh Duong Conversion Yarn Bleaching Machine Operator Cerner at 08/07/2022 7:30 PM CDT documented in this encounter Plan of Treatment Not on file documented as of this encounter Visit Diagnoses Not on filedocumented in this encounter
--- OUTSIDE RECORDS SUMMARY | 2024-10-26 16:28 | XMS_ITS | Encounter Summary ---
Author Organization [employer] ([place], [place], [place], [place]) Address [address] [place] [address] Care Team Providers Care Roll Icer Name Role Phone Unavailable Primary Care Provider Unavailabl e Encounter Details Date Type Department Care Team (Late st Contact Info) Description 11/27/2018 Transcribed Document [facility] [place] [facility] [place] [address] ProviderSebastian MD [address] [place] [address] Social History Tobacco Use Types Packs/Day [...] Conversion Note - Sebastian ProviderMD - 11/27/2018 5:53 PM CDT [address] [place] [address] PERSON INFORMATION Name YULIYA HAIR Age 48 Years 1970 Sex Female Language Turkish PCP ANNETTE TANNER DR Marital Status Single [facility] Service Emergency Medicine Acct# Arrival 11/27/2018 11:16:00 Visit Reason Abdominal pain; DR LUONG SENT PT OVER FOR POSSIBLE APPENDICITIS Acuity 3 - Urgent LOS 000 06:37 Depart Date: 00:00 AM Address: [address] [place] [address] Comment: PROVIDER INFORMATION Provider Role Assigned Unassigned JORGE A NORMAN PA ED Physician 11/27/2018 11:27:32 BARBARA BAIRD, CHECK SCALER Nurse 11/27/2018 11:29:52 DIAGNOSIS Acute appendicitis PHYS DOC NOTES VITALS INFORMATION Vital Sign Triage Latest Temp Source Tympanic Oral Temp Mode Fahrenheit Fahrenheit Temp Fahrenheit 99.4 Deg F 99.3 Deg F Temp Celsius 02 Sat 96 % 99 % Respiratory Rate 18 Breaths/Min 17 Breaths/Min Peripheral Pulse Rate 106 bpm 95 bpm Apical Heart Rate Blood Pressure 121 mmHg / 74 mmHg 110 mmHg / 67 mmHg Comment: MEDICAL INFORMATION Allergy Info: penicillin Medications: Comment: DISCHARGE INFORMATION Discharge Disposition: Admitted as Inpatient Discharge Location: PATIENT EDUCATION INFORMATION Instructions: Follow up: Comment: documented in this encounter Plan of Treatment Not on file documented as of this encounter Visit Diagnoses Not on filedocumented in this encounter
--- OUTSIDE RECORDS SUMMARY | 2024-10-26 16:28 | XMS_ITS | Encounter Summary ---
Author Organization [employer] ([place], [place], [place], [place]) Address [address] [place] [address] Care Team Providers Care Sales Representative Door To Door Name Role Phone Unavailable Primary Care Provider Angelique jenkins Encounter Details Date Type Department Care Team (Late st Contact Info) Description 11/27/2018 Transcribed Document [facility] [place] [facility] [place] [address] ProviderSebastian MD [facility] [place] [address] Social History Tobacco Use Types [...] Conversion Note - Historical ProviderMD - 11/27/2018 7:02 PM CDT Admission History, Adult Entered On: 11/27/2018 20:25 EDT Performed On: 11/27/2018 19:02 EDT by Shanice Levin LPN Advance Directive Patient has Advance Directive *Q : No, patient refuses Advance Directive information Shanice Levin LPN - 11/27/2018 20:21 EDT Anesthesia/Transfusion History Family History of Anesthesia Reaction : No prior transfusion(s) Transfusion History : No prior anesthesia Family History of Anesthesia Reaction : None Shanice Levin LPN - 11/27/2018 20:21 EDT Functional Assessment Living Situation : Home Current Home Treatments : None Shanice Levin LPN - 11/27/2018 20:21 EDT General Info Mode of Arrival on Unit : Ambulatory Legal Guardian : Step sibling Want Family/Rep/Phys Notified of Admit : No Emergency Contact #1 : Fuad smith Emergency Contact #1 Phone Number : tri Emergency Contact #1 Relationship : na Emergency Contact #2 : na Emergency Contact #2 Phone Number : na Emergency Contact #2 Relationship : na Chief Complaint : Sent from Dr Toure's office for poss appy. C/o abd pain, fever, and constipation since yesterday Primary Language : German Communication Barrier : None Shanice Levin LPN - 11/27/2018 20:21 EDT Fall Risk Scales ABCs Fall Injury Risk Identification : None CORDERO Hx Falls Immediate/Within 3 Months : No Cordero Secondary Diagnosis : No CORDERO Use of Ambulatory Aid : None CORDERO IV Therapy or IV Access : Yes [place]o Gait/Transferring : Normal, bedrest, immobile Cordero Mental Status : Oriented to own ability Cordero Fall Risk Score : 20 CORDERO Fall Scale Risk Level : 0-24 Low Risk Sawyer Fall Interventions : Adequate lighting, Assistive devices within reach, Bed in low position, Call device within reach, Fall prevention handout/education per facility policy, Frequent orientation to call device, Frequent orientation to surroundings, Hourly comfort/safety rounds, Non-slip footwear, Personal items within reach, Reinforced to call for assistance before getting out of bed, Room free of clutter/spills, Upper side-rails up, Wheels locked, Wires/Cords secured Shanice Levin LPN - 11/27/2018 20:21 EDT Health Histories Smoking Status : Never (less than 100 in lifetime; none in last 30 days) Smokeless Tobacco Status : Never Shanice Levin LPN - 11/27/2018 20:21 EDT Social History (As Of: 11/27/2018 20:25:49 EDT) Height and Weight, Clinical Dosing Height Source : Stated Height Entry Format : [place] Height, Feet : 5 ft(Converted to: 152 cm, 60 Inch) Height, Inches : 3 Inch(Converted to: 0 ft 3 Inch, 7.62 cm) Clinical Height : 160.02 cm Weight Source : Bed scale Weight Entry Format : [place] Clinical Dosing Weight : 81.82 kg Weight, Pounds : 180 lb Body Surface Area (BSA) : 1.85 m2 Body Mass Index : 32 kg/m2 (HI) [place] Body Weight : 52 kg Shanice eLvin LPN - 11/27/2018 20:21 EDT Infectious Disease History Infectious Disease History : MRSA Fever/Chills Last 48 Hours : Yes Experiencing Infectious Disease Symptoms : Abdominal pain Travel To Regions with Travel Advisories : No Travel Outside [place].S[place] Within Last 30 Days : No Contact With Traveler to Advisory Region : No Tuberculosis Symptoms : None Shanice Levin LPN - 11/27/2018 20:21 EDT Influenza Vaccine Asmt, Adult Previous Vaccines from Immunization Schedule : No qualifying data available. Influenza Immunization, Current Season : Outside of influenza season Shanice Levin LPN - 11/27/2018 20:21 EDT Pneumococcal Vaccine Previous Vaccines from Immunization Schedule : No qualifying data available. Pneumonia Immunization Received : Unknown Pneumococcal Risk Assessment < Age 65 : None Shanice Levin LPN - 11/27/2018 20:21 EDT Nutrition History Eating Poorly Due to Decreased Appetite : No Unplanned Weight Loss in Past 3-6 Months : No Malnutrition Screening Tool Total(mal) : 0 Malnutrition Screening Tool Risk Level : Patient not at risk Shanice Levin LPN - 11/27/2018 20:21 EDT Psychosocial History Do You Have a History of the Following? : Bipolar Disorder Currently in Unsafe Situation : No Tried to Harm Yourself in the Past? : No Thoughts of Harming/Killing Yourself : No Shanice Levin LPN - 11/27/2018 20:21 EDT Sleep Apnea Risk Assmt Hx of Obstructive Sleep Apnea Diagnosis : No Snore Loudly : No Tired, Fatigued, or Sleepy During Day : No Observed Stopping Breathing During Sleep : No Have/Are Being Treated for Hypertension : No BMI Greater Than 35 kg/m2 : No Age over 50 Years Old : No Neck Circumference Greater Than 40 cm : No Gender Male : No STOP-BANG Sleep Apnea Risk Level Score : 0 Shanice Levin LPN - 11/27/2018 20:21 EDT Valuables and Belongings Valuables and Belongings : No clothing, No comfort items, No jewelry, No personal devices, No personal items, No assistive devices, No respiratory devices, No medications Shanice Levin LPN - 11/27/2018 20:21 EDT documented in this encounter Plan of Treatment Not on file documented as of this encounter Visit Diagnoses Not on filedocumented in this encounter
[2024-10-26 16:46] LABS: Hematocrit 37.3 % (37.0-47.0); Hemoglobin 12.0 g/dL (12.2-16.2); Immature Granulocytes % 1.0 %; Mean Corpuscular HGB Conc 32.2 g/dL (31.8-35.4); Mean Corpuscular Hemoglobin 25.9 pg (27.0-31.2); Mean Corpuscular Volume 80.6 fl (81-99); Nucleated Red Blood Cells % 0 %; Platelet Count 296 K/mm3 (142-424); Red Blood Count 4.63 M/mm3 (4.20-5.40); Red Cell Distribution Width-SD 41.8 fL; White Blood Count 9.0 K/mm3 (4.8-10.8)
[2024-10-26 17:39] LABS: Free T4 (Free Thyroxine) 1.08 ng/dl (0.78-2.19)
[2024-10-26 17:40] LABS: 25-OH Vitamin D, Total 31.0 ng/mL (30-100)
[2024-10-26 17:53] LABS: Thyroid Stimulating Hormone 1.58 uIU/mL (0.465-4.68)
[2024-10-26 18:12] LABS: Vitamin B12 309 pg/mL (239-931)
[2024-10-26 19:21] LABS: Hemoglobin A1C 6.1 % (4.0-6.0)
[2024-10-27 08:23] LABS: Testosterone,Total <3 ng/dL (4-50); Triiodothyronine (T3) Free 3.3 pg/mL (2.0-4.4)
[2024-10-29 06:30] LABS: Testosterone,Free <0.2 pg/mL (0.0-4.2)
== END 2024-10-26 23:59 | disposition home or self-care (01) ==
LOC: LAB 16:27
PROVIDERS: PCP Family Medicine; Visit Provider Nurse Practitioner Family
DX: L68.0 Hirsutism (principal); L29.9 Pruritus, unspecified; G47.00 Insomnia, unspecified
CPT/HCPCS: 36415; 82306; 82607; 82670; 83036; 84144; 84402; 84403; 84439; 84443; 84481; 85025

== ENCOUNTER 2025-03-29 08:38 | Outpatient (CLI) | payer BC, SELFPAY ==
--- NOTE | 2025-03-29 | MM_ITS ---
PROCEDURE INFORMATION: Exam: MG Bilateral Screening 3D Mammography Exam date and time: 03/29/2025 8:53 AM Age: 55 years old Clinical indication: Screening examination, six-month follow-up recommended on 08/06/2023 for probably benign right upper outer quadrant calcifications which was initiated 12/06/2022. Her sister had breast cancer age 57 and her maternal grandmother had breast cancer. TECHNIQUE: Imaging protocol: Bilateral Screening tomosynthesis and 2D mammography including computer-aided detection (CAD) when performed. COMPARISON: 1. MG MM DIG MAMM DX UNILAT RT CAD 08/06/2023 1:39 PM 2. MG MM DIG MAMM DX UNILAT RT CAD 12/06/2022 2:24 PM 3. MG MM DIG SCREENING MAMM BI W/CAD 11/22/2022 11:04 AM FINDINGS: MAMMOGRAPHY: Breast composition: There are scattered areas of fibroglandular density. Mass: None. Architectural distortion: None. Calcifications: Calcifications in the right upper outer quadrant and right retroareolar, limited evaluation with nonmagnified views. Asymmetric density: Stable asymmetry in the upper right breast posteriorly compared to 11/22/2022. Skin thickening: None. Axillary adenopathy: None. IMPRESSION: Patient will be recalled for right diagnostic mammography with magnification views in CC and true lateral continued six-month follow-up of probably benign right calcifications, recommended 08/06/2023. ASSESSMENT: BI-RADS Category 0: Incomplete: Need Additional Imaging Evaluation.
== END 2025-03-29 23:59 | disposition home or self-care (01) ==
LOC: RAD 08:38
PROVIDERS: PCP Family Medicine; Visit Provider Family Medicine
DX: Z12.31 Encounter for screening mammogram for malignant neoplasm of breast (principal); R92.323 Mammographic fibroglandular density, bilateral breasts; N64.89 Other specified disorders of breast; Z80.3 Family history of malignant neoplasm of breast
CPT/HCPCS: 77063; 77067